=== PATIENT | male | born 1955 | race American Indian/Alaskan Native ===

== ENCOUNTER 2017-07-22 22:00 | Emergency (ER) | payer MEDICARE, MEDICAID ==
[2017-07-22] MEDS ORDERED: KEPPRA 1,000 MG/NS 0.75% 100ML 1,000 MG/100 ML BAG IV ONE (22:17)
--- NOTE | 2017-07-22 22:22 | Emergency Department Report ---
HPI - General Time Seen by Provider: 07/22/17 22:10 - HPI HPI: Room 3 The patient is 61-year-old male presenting with a chief complaint of seizure. The patient reportedly had a seizure at his assisted living facility while in the [place] watching television. EMS states the sanjay on the patient alert and oriented. Patient was being transported to the ED when he had another generalized tonic-clonic seizure witnessed by EMS last approximately 1 minute. Patient was given Versed 5 mg by EMS. Patient currently denies complaints. Patient states he had a headache earlier but no headache now. Patient denies shortness of breath. Patient denies any forms of pain currently Location: [facility] Duration: [See above] Quality: Generalized tonic-clonic Severity: Moderate Modifying factors: [see above] Context: [see above] Mode of transportation: [not driving] ED Past Medical Hx - Past Medical History Hx Hypertension: Yes Hx CVA: Yes (with residual left-sided weakness) Hx Diabetes: Yes Hx Seizures: Yes Hx Dementia: Yes - Surgical History Additional Surgical History: Herniorrhaphy - Family History Family history: no significant - Social History Smoking Status: Never Smoker ED Review of Systems ROS: Stated complaint: SEIZURE Other details as noted in HPI Eyes: denies: eye pain ENT: denies: throat pain Respiratory: denies: shortness of breath Cardiovascular: denies: chest pain Gastrointestinal: denies: abdominal pain Genitourinary: denies: dysuria Musculoskeletal: denies: back pain Neurological: denies: headache Physical Exam - Physical Exam Physical Exam: GENERAL: The patient is well-developed well-nourished male lying on stretcher not appearing to be in acute distress. [] HEENT: Normocephalic. Atraumatic. Extraocular motions are intact. Patient has moist mucous membranes. NECK: Supple. Trachea midline CHEST/LUNGS: Clear to auscultation. There is no respiratory distress noted. HEART/CARDIOVASCULAR: Regular. There is no tachycardia. There is no gallop rub or murmur. ABDOMEN: Abdomen is soft, nontender. Patient has normal bowel sounds. There is no abdominal distention. SKIN: There is no rash. There is no edema. There is no diaphoresis. NEURO: The patient is awake, alert, and oriented. The patient is cooperative. Cranial nerves II through XII grossly intact with exception of shoulder shrugging of the left secondary to residual left-sided weakness from previous CVA. The patient has normal speech MUSCULOSKELETAL: There is no evidence of acute injury. ED Medical Decision Making - Lab Data Result diagrams: 07/22/17 22:52 07/22/17 22:52 Laboratory Tests 07/22/17 07/22/17 22:52 22:52 WBC 6.6 RBC 2.98 L Hgb 10.3 L Hct 30.9 L MCV 104 H MCH 35 H MCHC 33 RDW 15.4 H Plt Count 128 L Lymph % (Auto) 5.8 L [place] % (Auto) 6.8 Eos % (Auto) 2.0 Baso % (Auto) 0.4 Lymph # 0.4 L [place] # 0.4 Eos # 0.1 Baso # 0.0 Seg Neutrophils % 85.0 H Seg Neutrophils # 5.6 Sodium 136 L Potassium 4.1 Chloride 98.4 Carbon Dioxide 24 Anion Gap 18 BUN 17 Creatinine 0.9 Estimated GFR > 60 BUN/Creatinine Ratio 19 Glucose 103 H Calcium 8.7 Magnesium 1.40 L - Differential Diagnosis seizure Critical care attestation.: If time is entered above; I have spent that time in minutes in the direct care of this critically ill patient, excluding procedure time. ED Disposition Clinical Impression: Seizure, Hypomagnesemia Disposition: DC-01 TO HOME OR SELFCARE Is pt being admited?: No Does the pt Need Aspirin: No Condition: Stable Instructions: Epilepsy (ED) Additional Instructions: Return to the emergency department immediately should you develop worsening symptoms, fever, inability to tolerate food or liquid or any other concerns. Referrals: AARON BURR MD [Primary Care Provider] - 3-5 Days (You should follow up with your primary physician for further evaluation of your low magnesium) Time of Disposition: 23:43
[2017-07-22 23:06] LABS: Basophils % (Auto) 0.4 % (0.0-1.8); Eosinophils # (Auto) 0.1 K/mm3 (0.0-0.4); Hematocrit 30.9 % (35.5-45.6); Hemoglobin 10.3 gm/dl (11.8-15.2); Lymphocytes # (Auto) 0.4 K/mm3 (1.2-5.4); Lymphocytes % (Auto) 5.8 % (13.4-35.0); Mean Corpuscular HGB Conc 33 % (32-34); Mean Corpuscular Hemoglobin 35 pg (28-32); Mean Corpuscular Volume 104 fl (84-94); Monocytes # (Auto) 0.4 K/mm3 (0.0-0.8); Monocytes % (Auto) 6.8 % (0.0-7.3); Platelet Count 128 K/mm3 (140-440); Red Blood Count 2.98 M/mm3 (3.65-5.03); Red Cell Distribution Width 15.4 % (13.2-15.2)
[2017-07-22 23:29] LABS: BUN/Creatinine Ratio 19; Blood Urea Nitrogen 17 mg/dL (9-20); Calcium 8.7 mg/dL (8.4-10.2); Hemolysis Index 3
[2017-07-22] MEDS ORDERED: MAGNESIUM SULFATE 2GM/50ML 2 GM/50 ML BAG IV ONE (23:33)
[2017-07-23 10:03] VITALS: BP 145/81
== END 2017-07-23 09:30 | disposition home or self-care (01) ==
LOC: ED 22:00
DX: E83.42 Hypomagnesemia (principal); R56.9 Unspecified convulsions; I10 Essential (primary) hypertension; F03.90 Unspecified dementia, unspecified severity, without behavioral disturbance, psychotic disturbance, mood disturbance, and anxiety; Z86.73 Personal history of transient ischemic attack (TIA), and cerebral infarction without residual deficits
CPT/HCPCS: 36415; 80048; 83735; 85025; 96365; 96375; 99284; J1953; J3475

== ENCOUNTER 2017-08-08 22:53 | Inpatient (IN) | payer MEDICARE ==
[2017-08-08] MEDS ORDERED: NACL 0.9% 1000 ML 1,000 ML IV ONE (23:44)
[2017-08-09 00:23] LABS: Hematocrit 28.5 % (35.5-45.6); Hemoglobin 9.3 gm/dl (11.8-15.2); Mean Corpuscular HGB Conc 33 % (32-34); Mean Corpuscular Hemoglobin 35 pg (28-32); Mean Corpuscular Volume 105 fl (84-94); Platelet Count 125 K/mm3 (140-440); Red Cell Distribution Width 15.6 % (13.2-15.2)
[2017-08-09 00:38] LABS: INR 1.05 (0.87-1.13)
[2017-08-09 00:47] LABS: Alanine Aminotransferase 16 units/L (7-56); Albumin 3.8 g/dL (3.9-5); BUN/Creatinine Ratio 25; Blood Urea Nitrogen 33 mg/dL (9-20); Calcium 9.2 mg/dL (8.4-10.2); Hemolysis Index 17; Lipase 12 units/L (13-60)
--- NOTE | 2017-08-09 01:33 | Emergency Department Report ---
ED GI Bleed HPI - General Chief complaint: GI Bleed Stated complaint: EMESIS Time Seen by Provider: 08/09/17 00:02 Source: patient, EMS Mode of arrival: Stretcher Limitations: No Limitations - History of Present Illness Initial comments: Patient with coffee ground emesis for 3 days and lives at [facility]. Reports swollen abdomen for 2 weeks but no significant abdominal pain. MD complaint: coffee ground emesis -: days(s) (3) Location: diffuse Radiation: epigastric Severity scale (0 -10): 6 Quality: sharp Consistency: intermittent Improves with: none Worsens with: eating, vomiting Associated Symptoms: abdominal pain, nausea, vomiting. denies: epistaxis, fever /chills - Related Data Allergies Allergy/AdvReac Type Severity Reaction Status Date / Time No Known Allergies Allergy Verified 08/08/17 23:36 ED Review of Systems ROS: Stated complaint: EMESIS Other details as noted in HPI Constitutional: denies: chills, fever Eyes: denies: eye pain, eye discharge, vision change ENT: denies: ear pain, throat pain Respiratory: denies: cough, shortness of breath, wheezing Cardiovascular: denies: chest pain, palpitations Endocrine: no symptoms reported Gastrointestinal: abdominal pain, nausea, vomiting. denies: diarrhea Genitourinary: denies: urgency, dysuria Musculoskeletal: denies: back pain, joint swelling, arthralgia Skin: denies: rash, lesions Neurological: denies: headache, weakness, paresthesias Psychiatric: denies: anxiety, depression Hematological/Lymphatic: denies: easy bleeding, easy bruising ED Past Medical Hx - Past Medical History Previous Medical History?: Yes Hx Hypertension: Yes Hx CVA: Yes (with residual left-sided weakness) Hx Diabetes: Yes Hx Seizures: Yes Hx Dementia: Yes - Surgical History Past Surgical History?: Yes Additional Surgical History: Herniorrhaphy - Social History Smoking Status: Never Smoker Substance Use Type: Prescribed ED Physical Exam - General Limitations: No Limitations General appearance: alert, in no apparent distress - Head Head exam: Present: atraumatic, normocephalic - Eye Eye exam: Present: normal appearance - ENT ENT exam: Present: mucous membranes moist - Neck Neck exam: Present: normal inspection - Respiratory Respiratory exam: Present: normal lung sounds bilaterally. Absent: respiratory distress - Cardiovascular Cardiovascular Exam: Present: regular rate, normal rhythm. Absent: systolic murmur, diastolic murmur, rubs, gallop - GI/Abdominal GI/Abdominal exam: Present: soft, distended, tenderness (Mild TTP with no peritonitis.), normal bowel sounds - Rectal Rectal exam: Present: deferred - Extremities Exam Extremities exam: Present: normal inspection - Back Exam Back exam: Present: normal inspection - Neurological Exam Neurological exam: Present: alert, oriented X3 - Psychiatric Psychiatric exam: Present: normal affect, normal mood - Skin Skin exam: Present: warm, dry, intact, normal color. Absent: rash ED Course Vital Signs 08/08/17 08/08/17 08/08/17 23:29 23:30 23:36 Temperature 98.7 F Pulse Rate 93 H 82 90 Respiratory 16 22 Rate Blood Pressure 132/72 132/70 O2 Sat by Pulse 96 99 Oximetry 08/08/17 08/09/17 08/09/17 23:45 00:00 00:15 Temperature Pulse Rate 88 86 85 Respiratory 15 17 14 Rate Blood Pressure 132/72 117/72 117/72 O2 Sat by Pulse 99 100 99 Oximetry 08/09/17 08/09/17 08/09/17 00:30 00:45 01:00 Temperature Pulse Rate 81 88 91 H Respiratory 18 13 16 Rate Blood Pressure 123/72 123/72 124/81 O2 Sat by Pulse 100 99 100 Oximetry 08/09/17 08/09/17 08/09/17 01:15 01:31 01:45 Temperature Pulse Rate 89 84 80 Respiratory 15 17 14 Rate Blood Pressure 124/81 112/82 116/76 O2 Sat by Pulse 100 100 99 Oximetry ED Medical Decision Making - Lab Data Result diagrams: 08/09/17 00:00 08/09/17 00:00 Hgb decreased from previous 10.3 to 9.3. Elevated BUN. Hemeoccult positive emesis and stool. - EKG Data -: EKG Interpreted by Ok EKG shows normal: QRS complexes (normal), ST-T waves (non-specific) Rate: normal (afib) - EKG Data Interpretation: no acute changes - Radiology Data Radiology results: pending - Medical Decision Making Patient has never had endoscopy upper or lower. He was positive for hemaoccult emesis and stool. Patient will be admitted for GI bleed. D/W Dr. Gracia Talamantes and will be admitted to hospitalist. D/W Dr. Teran at 2:43. Critical care attestation.: If time is entered above; I have spent that time in minutes in the direct care of this critically ill patient, excluding procedure time. ED Disposition Clinical Impression: GI bleed Qualifiers: GI bleed type/associated pathology: gastrointestinal hemorrhage with hematemesis Qualified Code(s): K92.0 - Hematemesis Disposition: OP ADMIT IP TO THIS HOSP Is pt being admited?: Yes Does the pt Need Aspirin: No Condition: Stable Referrals: OTONIEL TALAMANTES MD [Staff Physician] - 3-5 Days Time of Disposition: 02:42
[2017-08-09] MEDS ORDERED: PEPCID IV ONE (02:23)
[2017-08-09] MEDS ORDERED: ZOFRAN IV ONE (02:47)
--- NOTE | 2017-08-09 03:22 | Cat Scan Report ---
FINAL REPORT EXAM: CT CHEST W CON HISTORY: GI bleed TECHNIQUE: Routine axial imaging was obtained of the thorax following the intravenous injection of 100 cc of Omnipaque 300. Sagittal and coronal reconstructions were reviewed. There are no previous studies available for comparison. FINDINGS: There is chronic volume loss in the right hemithorax with pleural parenchymal scarring projecting the right apex. There is benign and pleural calcifications also in the right hemithorax. Additional scarring seen in the left lung. Pleural fluid is not seen. The lungs are not overtly congested. The heart size is normal. There is no evidence of pulmonary embolus. The thoracic aorta is normal in caliber. There is a large hiatal hernia with considerable fluid throughout the esophagus extending into the thoracic inlet. The skeletal structures reveal multilevel disc degeneration in the thoracic spine. IMPRESSION: Chronic volume loss the right hemithorax with areas of pleural parenchymal scarring and calcification in the right upper lobe and right lung base. No evidence of pneumonia or congestion. Large hiatal hernia with extensive fluid throughout the esophagus. Whether this on the basis of reflux is uncertain.
--- NOTE | 2017-08-09 03:32 | Cat Scan Report ---
FINAL REPORT EXAM: CT ABDOMEN PELVIS W CON HISTORY: GI bleed TECHNIQUE: Routine axial imaging was obtained of the abdomen pelvis following the intravenous injection of 100 cc of Omnipaque 300. Sagittal and coronal reconstructions were reviewed. FINDINGS: There is pleural parenchymal scarring in the right lung base. There is a large hiatal hernia with fluid in the distal esophagus. There is diffuse gas distention of the colon with a large amount retained feces in the ascending colon. There are multiple nondistended fluid-filled loops of small bowel. Free air is not seen. The liver is somewhat small having a lobulated contour suggesting underlying cirrhosis. There are no focal hepatic lesions. The gallbladder is normal in size and contains at least 1 stone. The pancreas and spleen appear normal. The adrenal glands appear normal. The kidneys enhance normally. There are multiple benign cortical cysts in both kidneys measuring 10.4 millimeters in diameter. There calcification of the abdominal aorta. Free fluid is not seen. There is no evidence of adenopathy. In the pelvis the prostate gland is normal size and contains calcifications. The bladder appears normal. The skeletal structures reveal arthritic changes in left hip and multilevel disc degeneration in the lumbar spine. IMPRESSION: Diffuse gas distention of the colon with considerable teen feces in the ascending colon. 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 Large amount retained feces in the ascending colon. Mild distention of small-bowel loops which may be on the basis of the retained feces in the ascending colon. Multiple benign cortical cysts in both kidneys. Changes of the liver compatible with cirrhosis. Gallstones. Large hiatal hernia with considerable fluid in the distal esophagus. Pleural parenchymal scarring in the right lung base.
[2017-08-09 04:56] LABS: Band Neutrophils # (Manual) 0.2 K/mm3; Basophils % (Manual) 0 % (0.0-1.8); Total Cells Counted 100
[2017-08-09 04:57] LABS: Anisocytosis 1+; Hypochromasia 1+; Platelet Estimate Consistent w Auto
[2017-08-09] MEDS ORDERED: TYLENOL PO PRN (04:57)
[2017-08-09] MEDS ORDERED: MILK OF MAGNESIA PO PRN (04:57)
[2017-08-09] MEDS ORDERED: DULCOLAX PR PRN (04:57)
--- NOTE | 2017-08-09 06:14 | History and Physical Report ---
History of Present Illness Date of examination: 08/09/17 Date of admission: 08/09/17 04:18 History of present illness: 61-year-old man with a history of hypertension, diabetes, dementia, seizure, CVA , sent from the long-term for cough, emesis for 3 days. He also noted that his abdomen is distended. Patient is a very poor historian, very difficult to elicit history from him, review of systems difficult to obtain PAST MEDICAL HISTORY:hypertension, diabetes, dementia, seizure, CVA, PAST SURGICAL HISTORY: Hemorrhoidectomy FAMILY HISTORY: Hypertension SOCIAL HISTORY: Denies alcohol, tobacco, drug Medications and Allergies Allergies Allergy/AdvReac Type Severity Reaction Status Date / Time No Known Allergies Allergy Verified 08/08/17 23:36 Home Medications Medication Instructions Recorded Confirmed Last Taken Type Atorvastatin Calcium [Lipitor] 40 mg PO DAILY 08/09/17 08/09/17 08/08/17 History Bicalutamide [Casodex] 50 mg PO DAILY 08/09/17 08/09/17 08/08/17 History Folic Acid [Folvite] 1 mg PO QDAY 08/09/17 08/09/17 08/08/17 History Lisinopril [Zestril] 40 mg PO DAILY 08/09/17 08/09/17 08/08/17 History Metformin HCl 500 mg PO BID 08/09/17 08/09/17 08/08/17 History levETIRAcetam [Keppra TAB] 500 mg PO BID 08/09/17 08/09/17 08/08/17 History Active Meds: Active Medications Acetaminophen (Tylenol) 650 mg PO Q4H PRN PRN Reason: Pain MILD(1-3)/Fever >100.5/MEJIA Bisacodyl (Dulcolax) 10 mg SD QDAY PRN PRN Reason: Constipation unrelieved by MOM Sodium Chloride (Nacl 0.9% 1000 Ml) 1,000 mls @ 100 mls/hr IV DIRECT ALISSA Magnesium Hydroxide (Milk Of Magnesia) 30 ml PO Q4H PRN PRN Reason: Constipation Ondansetron HCl (Zofran) 4 mg IV Q8H PRN PRN Reason: N/V unrelieved by Reglan Exam - Physical Exam Narrative exam: Gen. appearance: Patient lying in bed in no acute distress HEENT: Normocephalic/atraumatic, pupils equal round reactive to light, extra occular movement intact, no scleral icterus, no JVD or thyromegaly or nodule, neck is supple, mucous membrane moist, no erythema or exudate Heart: S1-S2, regular rate and rhythm Lungs: Clear to auscultation bilateral breathing comfortable Abdomen: Positive bowel sounds, nontender, distended, no organomegaly Extremities: No edema, cyanosis, clubbing Neuro:: Oriented 3 , cranial nerves II-12 intact, speech, motor intact Skin: No rash, nodules, warm dry - Constitutional Vitals: Temp Pulse Resp BP Pulse Ox 98.7 F 86 21 137/75 100 08/08/17 23:36 08/09/17 02:15 08/09/17 02:15 08/09/17 04:31 08/09/17 04:31 Results - Labs CBC & Chem 7: 08/09/17 00:00 08/09/17 00:00 Labs: Abnormal lab results 08/09/17 08/09/17 Range/Units 00:00 00:00 RBC 2.70 L (3.65-5.03) M/mm3 Hgb 9.3 L (11.8-15.2) gm/dl Hct 28.5 L (35.5-45.6) % MCV 105 H (84-94) fl MCH 35 H (28-32) pg RDW 15.6 H (13.2-15.2) % Plt Count 125 L (140-440) K/mm3 Seg Neuts % (Manual) 87.0 H (40.0-70.0) % Lymphocytes % (Manual) 6.0 L (13.4-35.0) % Lymphocytes # (Manual) 0.4 L (1.2-5.4) K/mm3 Sodium 127 L (137-145) mmol/L Chloride 93.4 L (98-107) mmol/L Carbon Dioxide 17 L (22-30) mmol/L BUN 33 H (9-20) mg/dL Glucose 124 H (75-100) mg/dL Albumin 3.8 L (3.9-5) g/dL Lipase 12 L (13-60) units/L - Imaging and Cardiology CT scan - abdomen: report reviewed CT scan - chest: report reviewed Assessment and Plan Assessment Upper GI bleed Olgives syndrome Hypertension Diabetes Seizure Dementia History of CVA Thrombocytopenia Plan Admit to medicine Start IV fluids, NG tube, IV Protonix Consult GI, surgery Chest fingersticks, initiate insulin sliding scale Continue appropriate outpatient medications DVT prophylaxis
[2017-08-09] MEDS: NACL 0.9% 1000 ML 1,000 ML IV SCH (06:24)
[2017-08-09 06:32] LABS: Hematocrit 26.2 % (35.5-45.6); Hemoglobin 8.9 gm/dl (11.8-15.2)
[2017-08-09 09:19] LABS: Hemoglobin 8.8 gm/dl (11.8-15.2)
[2017-08-09] MEDS ORDERED: KEPPRA 500 MG in NACL 0.9% 100 ML IV SCH (10:00)
--- NOTE | 2017-08-09 10:51 | Gastroenterology Consultation ---
Addendum entered and electronically signed by TEOFILO BIRCH RN NEONATAL 08/09/17 11: 33: Called and spoke with pt's sister Melonie Charles ([phone]). Discussed need for EGD tomorrow to include risks vs benefits. She wishes to proceed with procedure. Original Note: <TEOFILO BIRCH - Last Filed: 08/09/17 11:11> History of Present Illness - Reason for Consult Consult date: 08/09/17 GI bleed Requesting physician: ZACHERY POST - History of Present Illness Patient is a 64 y/o male [facility] resident with PMH of HTN, DM, CVA, dementia, seizure who presented to ED with c/o coffee-ground emesis x 3 days and abdominal distention. Patient resting in bed this am w/o acute distress. He c/o N/V with scant amount of coffee-ground emesis x 1 episode this am. Also admits to constipation and occasional dysphagia with solids. No hematemesis, melena, or hematochezia. No NSAID use. No hx of PUD or Fhx of GI cancers. No previous EGD/colonoscopy. Hx of ETOH abuse but no alcohol use in over 10-14 years. Denies fever, wt loss, CP, dizziness, jaundice, abd pain, odynophagia, or diarrhea. Past History Past Medical History: diabetes, hypertension, seizures, stroke, other (dementia) Past Surgical History: Other (herniorrhaphy) Social history: other ([facility] resident). denies: smoking Medications and Allergies Allergies Allergy/AdvReac Type Severity Reaction Status Date / Time influenza virus vaccine ts AdvReac Severe Seizure Verified 08/09/17 06:29 [id number] (36 mos up) [From Fluarix [id number] (PF)] pneumococcal vaccine AdvReac Seizure Verified 08/09/17 06:30 Home Medications Medication Instructions Recorded Confirmed Last Taken Type Atorvastatin Calcium [Lipitor] 40 mg PO DAILY 08/09/17 08/09/17 08/08/17 History Bicalutamide [Casodex] 50 mg PO DAILY 08/09/17 08/09/17 08/08/17 History Folic Acid [Folvite] 1 mg PO QDAY 08/09/17 08/09/17 08/08/17 History Lisinopril [Zestril] 40 mg PO DAILY 08/09/17 08/09/17 08/08/17 History Metformin HCl 500 mg PO BID 08/09/17 08/09/17 08/08/17 History levETIRAcetam [Keppra TAB] 500 mg PO BID 08/09/17 08/09/17 08/08/17 History Active Meds: Active Medications Acetaminophen (Tylenol) 650 mg PO Q4H PRN PRN Reason: Pain MILD(1-3)/Fever >100.5/MEJIA Dextrose (D50w (25gm) Syringe) 50 ml IV PRN PRN PRN Reason: Hypoglycemia Sodium Chloride (Nacl 0.9% 1000 Ml) 1,000 mls @ 100 mls/hr IV DIRECT [facility]IS[facility] Last Admin: 08/09/17 06:24 Dose: 100 mls/hr Levetiracetam 500 mg/ Sodium (Chloride) 105 mls @ 400 mls/hr IV Q12HR [facility] Ondansetron HCl (Zofran) 4 mg IV Q8H PRN PRN Reason: N/V unrelieved by Reglan Pantoprazole Sodium (Protonix) 40 mg IV QDAY ALISSA Review of Systems - Review of Systems All systems: negative Gastrointestinal: nausea, vomiting, coffee ground emesis, other (abdominal distention) Exam - Constitutional Vital Signs: Temp Pulse Resp BP Pulse Ox 97.4 F L 82 20 131/77 98 08/09/17 06:22 08/09/17 06:22 08/09/17 06:22 08/09/17 06:22 08/09/17 06:22 General appearance: no acute distress - EENT Eyes: PERRL, EOM intact ENT: hearing intact - Respiratory Respiratory: bilateral: CTA - Cardiovascular Rhythm: regular Heart Sounds: Present: S1 & S2 Extremities: No edema - Gastrointestinal General gastrointestinal: Present: soft, non-tender, non-distended, normal bowel sounds Rectal Exam: stool brown - Integumentary Integumentary: Present: warm, dry - Labs CBC & Chem 7: 08/09/17 08:54 08/09/17 00:00 Lab Results: Laboratory Results - last 24 hr 08/09/17 08/09/17 08/09/17 00:00 00:00 00:00 WBC 5.9 RBC 2.70 L Hgb 9.3 L Hct 28.5 L MCV 105 H MCH 35 H MCHC 33 RDW 15.6 H Plt Count 125 L Add Manual Diff Complete Total Counted 100 Seg Neutrophils % Commercial Underwriter Seg Neuts % (Manual) 87.0 H Band Neutrophils % 3.0 Lymphocytes % (Manual) 6.0 L Reactive Lymphs % (Man) 0 Monocytes % (Manual) 2.0 Eosinophils % (Manual) 2.0 Basophils % (Manual) 0 Metamyelocytes % 0 Myelocytes % 0 Promyelocytes % 0 Blast Cells % 0 Nucleated RBC % Not Reportable Seg Neutrophils # Man 5.1 Band Neutrophils # 0.2 Lymphocytes # (Manual) 0.4 L Abs React Lymphs (Man) 0.0 Monocytes # (Manual) 0.1 Eosinophils # (Manual) 0.1 Basophils # (Manual) 0.0 Metamyelocytes # 0.0 Myelocytes # 0.0 Promyelocytes # 0.0 Blast Cells # 0.0 WBC Morphology Not Reportable Hypersegmented Neuts Not Reportable Hyposegmented Neuts Not Reportable Hypogranular Neuts Not Reportable Smudge Cells Not Reportable Toxic Granulation Not Reportable Toxic Vacuolation Not Reportable Dohle Bodies Not Reportable Pelger-Huet Anomaly Not Reportable Félix Rods Not Reportable Platelet Estimate Consistent w auto Clumped Platelets Not Reportable Plt Clumps, EDTA Not Reportable Large Platelets Not Reportable Giant Platelets Not Reportable Platelet Satelliting Not Reportable Plt Morphology Comment Not Reportable RBC Morphology Not Reportable Dimorphic RBCs Not Reportable Polychromasia Not Reportable Hypochromasia 1+ Poikilocytosis Not Reportable Anisocytosis 1+ Microcytosis Not Reportable Macrocytosis Not Reportable Spherocytes Not Reportable Pappenheimer Bodies Not Reportable Sickle Cells Not Reportable Target Cells Not Reportable Tear Drop Cells Not Reportable Ovalocytes Not Reportable Helmet Cells Not Reportable [place]-Dickinson Bodies Not Reportable [place] Rings Not Reportable [place] Cells Not Reportable Bite Cells Not Reportable Crenated Cell Not Reportable Elliptocytes Not Reportable Acanthocytes (Spur) Not Reportable Rouleaux Not Reportable Hemoglobin C Crystals Not Reportable Schistocytes Not Reportable Malaria parasites Not Reportable Dada Bodies Not Reportable Hem Pathologist Commnt No PT 14.2 INR 1.05 APTT 32.0 Sodium 127 L Potassium 4.2 Chloride 93.4 L Carbon Dioxide 17 L Anion Gap 21 BUN 33 H Creatinine 1.3 Estimated GFR > 60 BUN/Creatinine Ratio 25 Glucose 124 H POC Glucose Calcium 9.2 Total Bilirubin < 0.20 AST 19 ALT 16 Alkaline Phosphatase 81 Total Protein 7.1 Albumin 3.8 L Albumin/Globulin Ratio 1.2 Lipase 12 L Blood Type Antibody Screen 08/09/17 08/09/17 08/09/17 00:00 05:47 08:21 WBC RBC Hgb 8.9 L Hct 26.2 L MCV MCH MCHC RDW Plt Count Add Manual Diff Total Counted Seg Neutrophils % Seg Neuts % (Manual) Band Neutrophils % Lymphocytes % (Manual) Reactive Lymphs % (Man) Monocytes % (Manual) Eosinophils % (Manual) Basophils % (Manual) Metamyelocytes % Myelocytes % Promyelocytes % Blast Cells % Nucleated RBC % Seg Neutrophils # Man Band Neutrophils # Lymphocytes # (Manual) Abs React Lymphs (Man) Monocytes # (Manual) Eosinophils # (Manual) Basophils # (Manual) Metamyelocytes # Myelocytes # Promyelocytes # Blast Cells # WBC Morphology Hypersegmented Neuts Hyposegmented Neuts Hypogranular Neuts Smudge Cells Toxic Granulation Toxic Vacuolation Dohle Bodies Pelger-Huet Anomaly Félix Rods Platelet Estimate Clumped Platelets Plt Clumps, EDTA Large Platelets Giant Platelets Platelet Satelliting Plt Morphology Comment RBC Morphology Dimorphic RBCs Polychromasia Hypochromasia Poikilocytosis Anisocytosis Microcytosis Macrocytosis Spherocytes Pappenheimer Bodies Sickle Cells Target Cells Tear Drop Cells Ovalocytes Helmet Cells [place]-Dickinson Bodies [place] Rings Mariel Cells Bite Cells Crenated Cell Elliptocytes Acanthocytes (Spur) Rouleaux Hemoglobin C Crystals Schistocytes Malaria parasites Dada Bodies Hem Pathologist Commnt PT INR APTT Sodium Potassium Chloride Carbon Dioxide Anion Gap BUN Creatinine Estimated GFR BUN/Creatinine Ratio Glucose POC Glucose 102 Calcium Total Bilirubin AST ALT Alkaline Phosphatase Total Protein Albumin Albumin/Globulin Ratio Lipase Blood Type O POSITIVE Antibody Screen Negative 08/09/17 08:54 WBC RBC Hgb 8.8 L Hct 26.0 L MCV MCH MCHC RDW Plt Count Add Manual Diff Total Counted Seg Neutrophils % Seg Neuts % (Manual) Band Neutrophils % Lymphocytes % (Manual) Reactive Lymphs % (Man) Monocytes % (Manual) Eosinophils % (Manual) Basophils % (Manual) Metamyelocytes % Myelocytes % Promyelocytes % Blast Cells % Nucleated RBC % Seg Neutrophils # Man Band Neutrophils # Lymphocytes # (Manual) Abs React Lymphs (Man) Monocytes # (Manual) Eosinophils # (Manual) Basophils # (Manual) Metamyelocytes # Myelocytes # Promyelocytes # Blast Cells # WBC Morphology Hypersegmented Neuts Hyposegmented Neuts Hypogranular Neuts Smudge Cells Toxic Granulation Toxic Vacuolation Dohle Bodies Pelger-Huet Anomaly Félix Rods Platelet Estimate Clumped Platelets Plt Clumps, EDTA Large Platelets Giant Platelets Platelet Satelliting Plt Morphology Comment RBC Morphology Dimorphic RBCs Polychromasia Hypochromasia Poikilocytosis Anisocytosis Microcytosis Macrocytosis Spherocytes Pappenheimer Bodies Sickle Cells Target Cells Tear Drop Cells Ovalocytes Helmet Cells [place]-Dickinson Bodies [place] Rings [place] Cells Bite Cells Crenated Cell Elliptocytes Acanthocytes (Spur) Rouleaux Hemoglobin C Crystals Schistocytes Malaria parasites Dada Bodies Hem Pathologist Commnt PT INR APTT Sodium Potassium Chloride Carbon Dioxide Anion Gap BUN Creatinine Estimated GFR BUN/Creatinine Ratio Glucose POC Glucose Calcium Total Bilirubin AST ALT Alkaline Phosphatase Total Protein Albumin Albumin/Globulin Ratio Lipase Blood Type Antibody Screen Assessment and Plan 1.GI bleed 2.coffee-ground emesis 3.abd distention 4.constipation 5.dysphagia 6.cirrhosis?- etiology most likely from hx of ETOH abuse -abd CT showed large hiatal hernia, underlying cirrhosis, and diffuse gas distention of the colon with large amount of retained feces in ascending colon ( possible ogilvies syndrome?) -plt 125 -LFTs- WNL -INR- 1.05 -HGB 8.8-trending down -continue to monitor H/H and transfuse as needed -hold blood thinning medications -currently hemodynamically stable -N/V with scant amount of coffee ground emesis x 1 episode this am -etiology unclear- possible esophagitis vs PUD vs other -will schedule EGD in am -continue PPI -Dulcolax supp daily -continue supportive care -will follow <ALMA HOPE - Last Filed: 08/10/17 10:27> Medications and Allergies Active Meds: Active Medications Acetaminophen (Tylenol) 650 mg PO Q4H PRN PRN Reason: Pain MILD(1-3)/Fever >100.5/MEJIA Bisacodyl (Dulcolax) 10 mg [place] QDAY [facility] Last Admin: 08/09/17 13:51 Dose: 10 mg Dextrose (D50w (25gm) Syringe) 50 ml IV PRN PRN PRN Reason: Hypoglycemia Sodium Chloride (Nacl 0.9% 1000 Ml) 1,000 mls @ 100 mls/hr IV DIRECT [facility] Last Admin: 08/10/17 10:09 Dose: 100 mls/hr Levetiracetam (Keppra 500 Mg/Ns 0.82% 100 Ml) 500 mg in 100 mls @ 100 mls/hr IV Q12H [facility] Last Admin: 08/09/17 22:45 Dose: 100 mls/hr Ondansetron HCl (Zofran) 4 mg IV Q8H PRN PRN Reason: N/V unrelieved by Kunal Last Admin: 08/09/17 18:45 Dose: 4 mg Pantoprazole Sodium (Protonix) 40 mg IV QDAY [facility] Last Admin: 08/09/17 11:29 Dose: 40 mg Exam - Constitutional Vital Signs: Temp Pulse Resp BP Pulse Ox 98.4 F 83 17 129/79 98 08/10/17 10:04 08/10/17 10:04 08/10/17 10:04 08/10/17 10:04 08/10/17 10:04 - Labs CBC & Chem 7: 08/10/17 04:00 08/10/17 04:00 Lab Results: Laboratory Results - last 24 hr 08/09/17 08/09/17 08/09/17 11:53 13:57 16:24 WBC RBC Hgb 8.5 L Hct 25.9 L MCV MCH MCHC RDW Plt Count Lymph % (Auto) [place] % (Auto) Eos % (Auto) Baso % (Auto) Lymph # [place] # Eos # Baso # Seg Neutrophils % Seg Neutrophils # Sodium Potassium Chloride Carbon Dioxide Anion Gap BUN Creatinine Estimated GFR BUN/Creatinine Ratio Glucose POC Glucose 95 80 Calcium 08/09/17 08/10/17 08/10/17 21:38 04:00 04:00 WBC 5.2 RBC 2.53 L Hgb 8.9 L Hct 26.6 L MCV 105 H MCH 35 H MCHC 33 RDW 15.1 Plt Count 109 L Lymph % (Auto) 5.6 L [place] % (Auto) 7.9 H Eos % (Auto) 1.6 Baso % (Auto) 0.2 Lymph # 0.3 L [place] # 0.4 Eos # 0.1 Baso # 0.0 Seg Neutrophils % 84.7 H Seg Neutrophils # 4.4 Sodium 133 L Potassium 4.2 Chloride 99.9 Carbon Dioxide 17 L Anion Gap 20 BUN 19 Creatinine 0.9 Estimated GFR > 60 BUN/Creatinine Ratio 21 Glucose 66 L POC Glucose 92 Calcium 8.2 L Assessment and Plan Pt seen and evaluated on 08/09. Will do EGD to assess for UGI source of bleed.
[2017-08-09] MEDS: PROTONIX IV SCH (11:29)
[2017-08-09] MEDS: DULCOLAX PR SCH (13:51)
[2017-08-09 14:37] LABS: Hematocrit 25.9 % (35.5-45.6); Hemoglobin 8.5 gm/dl (11.8-15.2)
--- NOTE | 2017-08-09 14:47 | Event Note ---
Date: 08/09/17
[2017-08-09] MEDS: ZOFRAN IV PRN (18:45)
[2017-08-09] MEDS: KEPPRA 500 MG/NS 0.82% 100 ML 500 MG/100 ML BAG IV SCH (22:45)
[2017-08-10 07:08] LABS: BUN/Creatinine Ratio 21; Basophils % (Auto) 0.2 % (0.0-1.8); Blood Urea Nitrogen 19 mg/dL (9-20); Calcium 8.2 mg/dL (8.4-10.2); Eosinophils # (Auto) 0.1 K/mm3 (0.0-0.4); Eosinophils % (Auto) 1.6 % (0.0-4.3); Hematocrit 26.6 % (35.5-45.6); Hemoglobin 8.9 gm/dl (11.8-15.2); Hemolysis Index 4; Lymphocytes # (Auto) 0.3 K/mm3 (1.2-5.4); Lymphocytes % (Auto) 5.6 % (13.4-35.0); Mean Corpuscular HGB Conc 33 % (32-34); Mean Corpuscular Hemoglobin 35 pg (28-32); Mean Corpuscular Volume 105 fl (84-94); Monocytes # (Auto) 0.4 K/mm3 (0.0-0.8); Monocytes % (Auto) 7.9 % (0.0-7.3); Platelet Count 109 K/mm3 (140-440); Red Blood Count 2.53 M/mm3 (3.65-5.03); Red Cell Distribution Width 15.1 % (13.2-15.2)
--- NOTE | 2017-08-10 09:13 | Anesthesia Consultation ---
Anesthesia Consult and Med Hx Date of service: 08/10/17 - Airway Anesthetic Teeth Evaluation: Good ROM Head & Neck: Adequate Mental/Hyoid Distance: Adequate Mallampati Class: Class II Intubation Access Assessment: Probably Good - Pulmonary Exam CTA: Yes - Cardiac Exam Cardiac Exam: RRR - Pre-Operative Health Status ASA Pre-Surgery Classification: ASA3 Proposed Anesthetic Plan: MAC - Pulmonary Hx Smoking: Yes (Quit 18 years ago) - Cardiovascular System Hx Hypertension: Yes - Central Nervous System Hx Seizures: Yes (last one a week ago) CVA: Yes - Endocrine Hx Non-Insulin Dependent Diabetes: Yes - Hematic Hx Anemia: Yes - Other Systems Hx Cancer: Yes (Prostate) - Additional Comments Anesthesia Medical History Comments: Hx of TB
--- NOTE | 2017-08-10 09:27 | Anesthesia Day of Surgery ---
Anesthesia Day of Surgery - Day of Surgery Patient Examined: Yes Patient H&P Reviewed: Yes Patient is NPO: Yes
[2017-08-10] MEDS ORDERED: ePHEDrine SULFATE ONE (10:00)
[2017-08-10] MEDS ORDERED: XYLOCAINE MPF 2% ONE (10:00)
[2017-08-10] MEDS: NACL 0.9% 1000 ML 1,000 ML IV SCH (10:09)
[2017-08-10] MEDS ORDERED: DIPRIVAN 10 MG/ML IV ONE ×2 (10:19)
--- NOTE | 2017-08-10 10:44 | Post Operative Note ---
Pre-op diagnosis: Coffee ground emesis Post-op diagnosis: other (Hiatal hernia, esophagitis) Findings: 1. Moderate erosive esophagitis from 30 to 34 cm from incisors. 2. 6 cm hiatal hernia, with Bruce erosions at hiatus. 3. O/w normal EGD, with no active or old blood noted. Procedure: EGD Anesthesia: MAC Surgeon: ALMA HOPE Estimated blood loss: none Pathology: none Condition: stable Disposition: floor (Chronic PPI, and may need iron. Can consider outpatient colonoscopy for screening purposes.)
[2017-08-10] MEDS: D50W (25GM) Syringe IV PRN ×2 (12:56→18:53)
[2017-08-10] MEDS: KEPPRA 500 MG/NS 0.82% 100 ML 500 MG/100 ML BAG IV SCH ×2 (12:59→21:32)
[2017-08-10] MEDS: PROTONIX IV SCH (13:00)
--- NOTE | 2017-08-10 14:14 | Consultation ---
History of Present Illness Consult date: 08/10/17 Chief complaint: Nausea, dysphagia - History of present illness History of present illness: Patient is a 61-year-old male with a history of a stroke who presents from his long-term care facility with complaints of upper abdominal pain, nausea, vomiting, dysphagia. The patient states that he has been having trouble swallowing for the past several weeks. He states that every time he goes to eat something solid he feels like he is unable to swallow and proceeds to vomit. He also states that he has associated upper abdominal pain localized to the epigastrium. Per the chart the patient had coffee-ground emesis and is being evaluated for GI bleed. He underwent an EGD today that showed erosive esophagitis, hiatal hernia. The patient states he feels well today. His abdominal pain and distention has improved. He had a bowel movement and is passing minimal flatus. He denies nausea, vomiting at this time. No fevers, chills, chest pain, shortness of breath. Past History Past Medical History: diabetes, hypertension, seizures, stroke, other (dementia) Past Surgical History: Other (herniorrhaphy) Social history: other (prison resident). denies: smoking Medications and Allergies Allergies Allergy/AdvReac Type Severity Reaction Status Date / Time influenza virus vaccine ts AdvReac Severe Seizure Verified 08/09/17 06:29 [id number] (36 mos up) [From Fluarix 2310-7910 (PF)] pneumococcal vaccine AdvReac Seizure Verified 08/09/17 06:30 Home Medications Medication Instructions Recorded Confirmed Last Taken Type Atorvastatin Calcium [Lipitor] 40 mg PO DAILY 08/09/17 08/09/17 08/08/17 History Bicalutamide [Casodex] 50 mg PO DAILY 08/09/17 08/09/17 08/08/17 History Folic Acid [Folvite] 1 mg PO QDAY 08/09/17 08/09/17 08/08/17 History Lisinopril [Zestril] 40 mg PO DAILY 08/09/17 08/09/17 08/08/17 History Metformin HCl 500 mg PO BID 08/09/17 08/09/17 08/08/17 History levETIRAcetam [Keppra TAB] 500 mg PO BID 08/09/17 08/09/17 08/08/17 History Active Meds: Active Medications Acetaminophen (Tylenol) 650 mg PO Q4H PRN PRN Reason: Pain MILD(1-3)/Fever >100.5/MEJIA Bisacodyl (Dulcolax) 10 mg [place] QDAY [facility] Last Admin: 08/09/17 13:51 Dose: 10 mg Dextrose (D50w (25gm) Syringe) 50 ml IV PRN PRN PRN Reason: Hypoglycemia Last Admin: 08/10/17 12:56 Dose: 50 ml Docusate Sodium (Colace) 100 mg PO BID ALISSA Levetiracetam (Keppra 500 Mg/Ns 0.82% 100 Ml) 500 mg in 100 mls @ 100 mls/hr IV Q12H [facility] Last Admin: 08/10/17 12:59 Dose: 100 mls/hr Dextrose/Sodium Chloride (D5ns) 1,000 mls @ 75 mls/hr IV DIRECT ALISSA Ondansetron HCl (Zofran) 4 mg IV Q8H PRN PRN Reason: N/V unrelieved by Reglan Last Admin: 08/09/17 18:45 Dose: 4 mg Pantoprazole Sodium (Protonix) 40 mg IV QDAY [facility] Last Admin: 08/10/17 13:00 Dose: 40 mg Review of Systems All systems: negative (see hpi) Exam Vital Signs Pulse Resp Pulse Ox 93 H 16 96 08/08/17 23:29 08/08/17 23:29 08/08/17 23:29 Narrative exam: General: Awake, alert, oriented 3. No apparent distress CV: S1, S2 present Respiratory: Clear to auscultation bilaterally. No wheezes rales or rhonchi Abdomen: Soft, distended, nontender. Hypoactive bowel sounds in all 4 quadrants. No rebound, rigidity, guarding Extremities: No clubbing, cyanosis, edema Results - Labs 08/10/17 04:00 08/10/17 04:00 Abnormal lab results 08/09/17 08/10/17 08/10/17 Range/Units 13:57 04:00 04:00 RBC 2.53 L (3.65-5.03) M/mm3 Hgb 8.5 L 8.9 L (11.8-15.2) gm/dl Hct 25.9 L 26.6 L (35.5-45.6) % MCV 105 H (84-94) fl MCH 35 H (28-32) pg Plt Count 109 L (140-440) K/mm3 Lymph % (Auto) 5.6 L (13.4-35.0) % [place] % (Auto) 7.9 H (0.0-7.3) % Lymph # 0.3 L (1.2-5.4) K/mm3 Seg Neutrophils % 84.7 H (40.0-70.0) % Sodium 133 L (137-145) mmol/L Carbon Dioxide 17 L (22-30) mmol/L Glucose 66 L (75-100) mg/dL Calcium 8.2 L (8.4-10.2) mg/dL Diabetes panel 08/10/17 Range/Units 04:00 Sodium 133 L (137-145) mmol/L Potassium 4.2 (3.6-5.0) mmol/L Chloride 99.9 (98-107) mmol/L Carbon Dioxide 17 L (22-30) mmol/L BUN 19 (9-20) mg/dL Creatinine 0.9 (0.8-1.5) mg/dL Glucose 66 L (75-100) mg/dL Calcium 8.2 L (8.4-10.2) mg/dL Calcium panel 08/10/17 Range/Units 04:00 Calcium 8.2 L (8.4-10.2) mg/dL Pituitary panel 08/10/17 Range/Units 04:00 Sodium 133 L (137-145) mmol/L Potassium 4.2 (3.6-5.0) mmol/L Chloride 99.9 (98-107) mmol/L Carbon Dioxide 17 L (22-30) mmol/L BUN 19 (9-20) mg/dL Creatinine 0.9 (0.8-1.5) mg/dL Glucose 66 L (75-100) mg/dL Calcium 8.2 L (8.4-10.2) mg/dL Adrenal panel 08/10/17 Range/Units 04:00 Sodium 133 L (137-145) mmol/L Potassium 4.2 (3.6-5.0) mmol/L Chloride 99.9 (98-107) mmol/L Carbon Dioxide 17 L (22-30) mmol/L BUN 19 (9-20) mg/dL Creatinine 0.9 (0.8-1.5) mg/dL Glucose 66 L (75-100) mg/dL Calcium 8.2 L (8.4-10.2) mg/dL - Imaging CT scan - abdomen: report reviewed, image reviewed US - pelvic: report reviewed, image reviewed Assessment and Plan 61-year-old male with 1. GI bleed 2. Colonic distention, constipation 3. History of seizures 4. History of stroke 5. Diabetes Plan: 1. daily bowel regimen of colace BID and dulcolax suppository 2. OOB TID/PT consult. Pt states he is able to ambulate 3. PPI 4. start clear liquid diet 5. change to maintenance IVF 6. continue home meds 7. avoid narcotic meds 8. trend H/H
--- NOTE | 2017-08-10 15:02 | Discharge Summary ---
Providers - Providers Date of Admission: 08/09/17 04:18 Date of discharge: 08/10/17 Attending physician: QUIN FOY 08/09/17 02:26 Consult to Physician [CONS] Urgent Consulting Provider: OTONIEL DENT Reason For Exam: GI Bleed Place consult to:: Dr. Gracia Dent Notified:: Answering Service Phone number called:: [phone] Was contact made?: Yes If yes, spoke with:: Dr. Gracia Dent Time called:: 02:22 Comment:: Dr. Garcia (er dr) spoke with Dr. Gracia Dent 08/09/17 06:18 Consult to Physician [CONS] Routine Consulting Provider: CONRADO MITCHELL Reason For Exam: olgives sy n Place consult to:: Dr. Mitchell Notified:: Nesha MANZO Phone number called:: Was contact made?: Yes If yes, spoke with:: Gerber-office Time called:: 09:13 08/09/17 06:36 Consult to Wound/ET Nurse [CONS] Urgent Reason For Exam: bilateral buttocks decu (POA) wound eval 08/10/17 14:14 Physical Therapy Evaluation and Treat [CONS] Routine Comment: Reason For Exam: hx stroke Primary care physician: ARMIN DENT Hospitalization Condition: Stable Disposition: DC-30 STILL A PATIENT Core Measure Documentation - Palliative Care Palliative Care/ Comfort Measures: Not Applicable Exam - Constitutional Vitals: Temp Pulse Resp BP Pulse Ox 98.7 F 83 21 115/70 100 08/10/17 10:39 08/10/17 11:38 08/10/17 11:38 08/10/17 11:38 08/10/17 11:38 Plan Follow up with: OTONIEL DENT MD [Staff Physician] - 3-5 Days
[2017-08-10] MEDS: COLACE PO SCH (21:33)
[2017-08-11] MEDS: D50W (25GM) Syringe IV PRN (00:37)
[2017-08-11] MEDS: DULCOLAX PR SCH (09:30)
[2017-08-11] MEDS: PROTONIX IV SCH (09:30)
[2017-08-11] MEDS: COLACE PO SCH ×2 (09:30→21:22)
[2017-08-11] MEDS ORDERED: GOLYTELY PO ONE (11:47)
--- NOTE | 2017-08-11 11:47 | Progress Note ---
Assessment and Plan Assessment and plan: was here for GI colon is distended, still having BM -severe constipation Hospitalist Physical - Constitutional Vitals: Temp Pulse Resp BP Pulse Ox 99.0 F 79 18 100/64 98 08/11/17 08:48 08/11/17 08:48 08/11/17 08:48 08/11/17 08:48 08/11/17 08:48 Results - Labs CBC & Chem 7: 08/10/17 04:00 08/10/17 19:08 Labs: Laboratory Last Values WBC 5.2 K/mm3 (4.5-11.0) 08/10/17 04:00 RBC 2.53 M/mm3 (3.65-5.03) L 08/10/17 04:00 Hgb 8.9 gm/dl (11.8-15.2) L 08/10/17 04:00 Hct 26.6 % (35.5-45.6) L 08/10/17 04:00 MCV 105 fl (84-94) H 08/10/17 04:00 MCH 35 pg (28-32) H 08/10/17 04:00 MCHC 33 % (32-34) 08/10/17 04:00 RDW 15.1 % (13.2-15.2) 08/10/17 04:00 Plt Count 109 K/mm3 (140-440) L 08/10/17 04:00 Lymph % (Auto) 5.6 % (13.4-35.0) L 08/10/17 04:00 [place] % (Auto) 7.9 % (0.0-7.3) H 08/10/17 04:00 Eos % (Auto) 1.6 % (0.0-4.3) 08/10/17 04:00 Baso % (Auto) 0.2 % (0.0-1.8) 08/10/17 04:00 Lymph # 0.3 K/mm3 (1.2-5.4) L 08/10/17 04:00 Broome # 0.4 K/mm3 (0.0-0.8) 08/10/17 04:00 Eos # 0.1 K/mm3 (0.0-0.4) 08/10/17 04:00 Baso # 0.0 K/mm3 (0.0-0.1) 08/10/17 04:00 Add Manual Diff Complete 08/09/17 00:00 Total Counted 100 08/09/17 00:00 Seg Neutrophils % 84.7 % (40.0-70.0) H 08/10/17 04:00 Seg Neuts % (Manual) 87.0 % (40.0-70.0) H 08/09/17 00:00 Band Neutrophils % 3.0 % 08/09/17 00:00 Lymphocytes % (Manual) 6.0 % (13.4-35.0) L 08/09/17 00:00 Reactive Lymphs % (Man) 0 % 08/09/17 00:00 Monocytes % (Manual) 2.0 % (0.0-7.3) 08/09/17 00:00 Eosinophils % (Manual) 2.0 % (0.0-4.3) 08/09/17 00:00 Basophils % (Manual) 0 % (0.0-1.8) 08/09/17 00:00 Metamyelocytes % 0 % 08/09/17 00:00 Myelocytes % 0 % 08/09/17 00:00 Promyelocytes % 0 % 08/09/17 00:00 Blast Cells % 0 % 08/09/17 00:00 Nucleated RBC % Not Reportable 08/09/17 00:00 Seg Neutrophils # 4.4 K/mm3 (1.8-7.7) 08/10/17 04:00 Seg Neutrophils # Man 5.1 K/mm3 (1.8-7.7) 08/09/17 00:00 Band Neutrophils # 0.2 K/mm3 08/09/17 00:00 Lymphocytes # (Manual) 0.4 K/mm3 (1.2-5.4) L 08/09/17 00:00 Abs React Lymphs (Man) 0.0 K/mm3 08/09/17 00:00 Monocytes # (Manual) 0.1 K/mm3 (0.0-0.8) 08/09/17 00:00 Eosinophils # (Manual) 0.1 K/mm3 (0.0-0.4) 08/09/17 00:00 Basophils # (Manual) 0.0 K/mm3 (0.0-0.1) 08/09/17 00:00 Metamyelocytes # 0.0 K/mm3 08/09/17 00:00 Myelocytes # 0.0 K/mm3 08/09/17 00:00 Promyelocytes # 0.0 K/mm3 08/09/17 00:00 Blast Cells # 0.0 K/mm3 08/09/17 00:00 WBC Morphology Not Reportable 08/09/17 00:00 Hypersegmented Neuts Not Reportable 08/09/17 00:00 Hyposegmented Neuts Not Reportable 08/09/17 00:00 Hypogranular Neuts Not Reportable 08/09/17 00:00 Smudge Cells Not Reportable 08/09/17 00:00 Toxic Granulation Not Reportable 08/09/17 00:00 Toxic Vacuolation Not Reportable 08/09/17 00:00 Dohle Bodies Not Reportable 08/09/17 00:00 Pelger-Huet Anomaly Not Reportable 08/09/17 00:00 Félix Rods Not Reportable 08/09/17 00:00 Platelet Estimate Consistent w auto 08/09/17 00:00 Clumped Platelets Not Reportable 08/09/17 00:00 Plt Clumps, EDTA Not Reportable 08/09/17 00:00 Large Platelets Not Reportable 08/09/17 00:00 Giant Platelets Not Reportable 08/09/17 00:00 Platelet Satelliting Not Reportable 08/09/17 00:00 Plt Morphology Comment Not Reportable 08/09/17 00:00 RBC Morphology Not Reportable 08/09/17 00:00 Dimorphic RBCs Not Reportable 08/09/17 00:00 Polychromasia Not Reportable 08/09/17 00:00 Hypochromasia 1+ 08/09/17 00:00 Poikilocytosis Not Reportable 08/09/17 00:00 Anisocytosis 1+ 08/09/17 00:00 Microcytosis Not Reportable 08/09/17 00:00 Macrocytosis Not Reportable 08/09/17 00:00 Spherocytes Not Reportable 08/09/17 00:00 Pappenheimer Bodies Not Reportable 08/09/17 00:00 Sickle Cells Not Reportable 08/09/17 00:00 Target Cells Not Reportable 08/09/17 00:00 Tear Drop Cells Not Reportable 08/09/17 00:00 Ovalocytes Not Reportable 08/09/17 00:00 Helmet Cells Not Reportable 08/09/17 00:00 Carmona-Trilby Bodies Not Reportable 08/09/17 00:00 Purling Rings Not Reportable 08/09/17 00:00 Livermore Cells Not Reportable 08/09/17 00:00 Bite Cells Not Reportable 08/09/17 00:00 Crenated Cell Not Reportable 08/09/17 00:00 Elliptocytes Not Reportable 08/09/17 00:00 Acanthocytes (Spur) Not Reportable 08/09/17 00:00 Rouleaux Not Reportable 08/09/17 00:00 Hemoglobin C Crystals Not Reportable 08/09/17 00:00 Schistocytes Not Reportable 08/09/17 00:00 Malaria parasites Not Reportable 08/09/17 00:00 Dada Bodies Not Reportable 08/09/17 00:00 Hem Pathologist Commnt No 08/09/17 00:00 PT 14.2 Sec. (12.2-14.9) 08/09/17 00:00 INR 1.05 (0.87-1.13) 08/09/17 00:00 APTT 32.0 Sec. (24.2-36.6) 08/09/17 00:00 Sodium 133 mmol/L (137-145) L 08/10/17 04:00 Potassium 4.2 mmol/L (3.6-5.0) 08/10/17 04:00 Chloride 99.9 mmol/L (98-107) 08/10/17 04:00 Carbon Dioxide 17 mmol/L (22-30) L 08/10/17 04:00 Anion Gap 20 mmol/L 08/10/17 04:00 BUN 19 mg/dL (9-20) 08/10/17 04:00 Creatinine 0.9 mg/dL (0.8-1.5) 08/10/17 04:00 Estimated GFR > 60 ml/min 08/10/17 04:00 BUN/Creatinine Ratio 21 % 08/10/17 04:00 Glucose 211 mg/dL (75-100) H 08/10/17 19:08 POC Glucose 99 (70-105) 08/11/17 08:56 Calcium 8.2 mg/dL (8.4-10.2) L 08/10/17 04:00 Total Bilirubin < 0.20 mg/dL (0.1-1.2) 08/09/17 00:00 AST 19 units/L (5-40) 08/09/17 00:00 ALT 16 units/L (7-56) 08/09/17 00:00 Alkaline Phosphatase 81 units/L (35-129) 08/09/17 00:00 Total Protein 7.1 g/dL (6.3-8.2) 08/09/17 00:00 Albumin 3.8 g/dL (3.9-5) L 08/09/17 00:00 Albumin/Globulin Ratio 1.2 % 08/09/17 00:00 Lipase 12 units/L (13-60) L 08/09/17 00:00 Blood Type O POSITIVE 08/09/17 00:00 Antibody Screen Negative 08/09/17 00:00
--- NOTE | 2017-08-11 11:55 | Event Note ---
Date: 08/11/[address] Noel Packer this patient pw suspected GI bleed -sp EGD which was unrevealing -he has distended colon, and has much stool through Right colon and some gas and small amount of stool in left colon -she has placed Rectal tube -Will order Golytely to help with colonic decompression -if patient does not tolerate Golytely, will call GI to perform decompression -Dr Rhett Grace is the assigned Doctor for this patient, I have made him aware
[2017-08-11] MEDS: KEPPRA 500 MG/NS 0.82% 100 ML 500 MG/100 ML BAG IV SCH ×2 (12:14→21:22)
--- NOTE | 2017-08-11 12:27 | Progress Note ---
Assessment and Plan 61 yo M with 1. distended colon - ?oglevies syndrome 2. UGIB s/p EGD 3. seizure d/o 4. hx stroke Plan: 1. rectal tube inserted to attempt to decompressing colon. CT A/P reviewed with radiologist - stool vs mucosal thickening of ascending colon, distension of entire colon without evidence of stricture or mass to suggest mechanical large bowel obstruction. 2. NPO 3. IVF 4. golytely ordered. 5. recommend GI reeval 6. check BMP and replace lytes as needed 7. serial abd exams D/W 1' team Subjective Date of service: 08/11/17 Narrative: Pt seen and examined. c/o nausea and spitting up clear fluid from time to time. He has been tolerating clear liquids. C/O abdominal distension causing discomfort. He has small amount of flatus this am and small BM. No f/c Objective Vital Signs - 12hr 08/11/17 08/11/17 08/11/17 00:35 04:12 05:00 Temperature 98.2 F 97.8 F Pulse Rate 83 79 81 Respiratory 18 18 Rate Blood Pressure 111/72 97/66 O2 Sat by Pulse 100 99 Oximetry 08/11/17 08:48 Temperature 99.0 F Pulse Rate 79 Respiratory 18 Rate Blood Pressure 100/64 O2 Sat by Pulse 98 Oximetry - General physical appearance Narrative Exam: Gen: AAOx3. NAD CV: S1, S2+ Resp: No audible wheezes Abd, soft, distended, tympanitic, NT. no r/r/g Rectal: soft brown stool in rectal vault, normal rectal tone, no masses, no gross blood. 24 F lópez catheter with additional holes cut at the end inserted approx 5 cm into rectum. Connected to vented lópez bag. Ext: no c/c/e - Labs 08/10/17 04:00 08/10/17 19:08 Diabetes panel 08/10/17 08/10/17 Range/Units 13:42 19:08 Glucose 143 H 211 H (75-100) mg/dL Pituitary panel 08/10/17 08/10/17 Range/Units 13:42 19:08 Glucose 143 H 211 H (75-100) mg/dL Adrenal panel 08/10/17 08/10/17 Range/Units 13:42 19:08 Glucose 143 H 211 H (75-100) mg/dL - Imaging CT scan - abdomen: report reviewed, image reviewed CT scan - pelvis: report reviewed, image reviewed
[2017-08-11 14:03] LABS: BUN/Creatinine Ratio 19; Blood Urea Nitrogen 17 mg/dL (9-20); Calcium 8.4 mg/dL (8.4-10.2); Hemolysis Index 32
--- NOTE | 2017-08-11 15:14 | Progress Note ---
Assessment and Plan Abdominal distention: Status post EGD, results reviewed Colonic distention, rectal tube Surgery on board Continue management per GI and general surgery Type 2 diabetes: Continue insulin sliding scale Hypertension: Fair Seizure disorder: Continue Keppra Old stroke Subjective Date of service: 08/11/17 Interval history: Patient is awake and alert, poor historian Denies any pain Not in any distress Abdomen severely distended Patient denies any abdominal pain He does complain of nausea but denies any vomiting all interdisciplinaryreviewed Objective - Constitutional Vitals: Vital Signs - 12hr 08/11/17 08/11/17 08/11/17 04:12 05:00 08:48 Temperature 97.8 F 99.0 F Pulse Rate 79 81 79 Respiratory 18 18 Rate Blood Pressure 97/66 100/64 O2 Sat by Pulse 99 98 Oximetry 08/11/17 12:17 Temperature Pulse Rate 78 Respiratory Rate Blood Pressure 111/70 O2 Sat by Pulse 98 Oximetry General appearance: Present: no acute distress - EENT Eyes: PERRL, EOM intact ENT: hearing intact, clear oral mucosa - Neck Neck: supple, normal ROM - Respiratory Respiratory effort: normal Respiratory: bilateral: CTA - Cardiovascular Rhythm: regular Heart Sounds: Present: S1 & S2 Extremities: No edema - Gastrointestinal General gastrointestinal: Present: non-tender, distended (tense and tympanitic to percussion) - Labs CBC & Chem 7: 08/10/17 04:00 08/11/17 12:41 Labs: Abnormal lab results 08/10/17 08/10/17 08/10/17 Range/Units 07:34 12:50 18:39 Sodium (137-145) mmol/L Carbon Dioxide (22-30) mmol/L Glucose (75-100) mg/dL POC Glucose 63 L 41 L 55 L (70-105) Magnesium (1.7-2.3) mg/dL 08/10/17 08/11/17 08/11/17 Range/Units 19:08 00:06 01:18 Sodium (137-145) mmol/L Carbon Dioxide (22-30) mmol/L Glucose 211 H (75-100) mg/dL POC Glucose 64 L 207 H (70-105) Magnesium (1.7-2.3) mg/dL 08/11/17 Range/Units 12:41 Sodium 133 L (137-145) mmol/L Carbon Dioxide 17 L (22-30) mmol/L Glucose (75-100) mg/dL POC Glucose (70-105) Magnesium 1.40 L (1.7-2.3) mg/dL
[2017-08-11] MEDS ORDERED: MAGNESIUM SULFATE 1 GM in NACL 0.9% 50 ML IV ONE (16:00)
[2017-08-11] MEDS: ZOFRAN IV PRN (18:28)
[2017-08-11] MEDS: D5NS 1,000 ML IV SCH (18:28)
[2017-08-12] MEDS: ZOFRAN IV PRN (04:14)
[2017-08-12 08:58] LABS: BUN/Creatinine Ratio 17; Blood Urea Nitrogen 15 mg/dL (9-20); Calcium 8.7 mg/dL (8.4-10.2); Hemolysis Index 3
--- NOTE | 2017-08-12 09:59 | Progress Note ---
Assessment and Plan 61 yo M with 1. distended colon - ?oglevies syndrome. ?colitis. No evidence of mechanical obstruction on CT A/P 2. UGIB s/p EGD 3. seizure d/o 4. hx stroke Plan: 1. continue rectal tube 2. NPO 3. IVF 4. recommend repeat GI reeval for colon distension and possible need for decompression 5. check BMP and replace lytes as needed 6. serial abd exams 7. OOB to chair, PT consult 8. continue conservative management, will follow Subjective Date of service: 08/12/17 Narrative: Patient seen and examined. He continues to complain of nausea. He also complains of abdominal distention. The patient drank GoLYTELY yesterday and states he felt some relief and his abdomen became less distended for a short period of time. He is having bowel movements around his rectal tube. No fever/ chills. He tolerated all of the GoLYTELY without any emesis. Objective Vital Signs - 12hr 08/11/17 08/12/17 08/12/17 23:30 05:00 05:10 Temperature 98.2 F 98.0 F Pulse Rate 72 74 68 Respiratory 18 18 Rate Blood Pressure 134/81 125/75 O2 Sat by Pulse 98 99 Oximetry - General physical appearance Narrative Exam: General: Awake, alert, oriented 3. No apparent distress CV: S1, S2 present Respiratory: No audible wheezes Abdomen: Soft, nontender, very distended, tympanitic. Hypoactive bowel sounds. No rebound, rigidity, guarding Rectal: The rectal tube is in place. There is soft stool around the rectal tube in the diaper. There is liquid brown stool in the bag and tubing connected to the rectal tube. - Labs 08/10/17 04:00 08/12/17 08:24 Diabetes panel 08/11/17 08/12/17 Range/Units 12:41 08:24 Sodium 133 L 136 L (137-145) mmol/L Potassium 3.9 4.4 (3.6-5.0) mmol/L Chloride 100.0 98.0 (98-107) mmol/L Carbon Dioxide 17 L 22 (22-30) mmol/L BUN 17 15 (9-20) mg/dL Creatinine 0.9 0.9 (0.8-1.5) mg/dL Glucose 86 100 (75-100) mg/dL Calcium 8.4 8.7 (8.4-10.2) mg/dL Calcium panel 08/11/17 08/12/17 Range/Units 12:41 08:24 Calcium 8.4 8.7 (8.4-10.2) mg/dL Phosphorus 2.80 2.80 (2.5-4.5) mg/dL Pituitary panel 08/11/17 08/12/17 Range/Units 12:41 08:24 Sodium 133 L 136 L (137-145) mmol/L Potassium 3.9 4.4 (3.6-5.0) mmol/L Chloride 100.0 98.0 (98-107) mmol/L Carbon Dioxide 17 L 22 (22-30) mmol/L BUN 17 15 (9-20) mg/dL Creatinine 0.9 0.9 (0.8-1.5) mg/dL Glucose 86 100 (75-100) mg/dL Calcium 8.4 8.7 (8.4-10.2) mg/dL Adrenal panel 08/11/17 08/12/17 Range/Units 12:41 08:24 Sodium 133 L 136 L (137-145) mmol/L Potassium 3.9 4.4 (3.6-5.0) mmol/L Chloride 100.0 98.0 (98-107) mmol/L Carbon Dioxide 17 L 22 (22-30) mmol/L BUN 17 15 (9-20) mg/dL Creatinine 0.9 0.9 (0.8-1.5) mg/dL Glucose 86 100 (75-100) mg/dL Calcium 8.4 8.7 (8.4-10.2) mg/dL
[2017-08-12] MEDS ORDERED: MAGNESIUM SULFATE 2GM/50ML 2 GM/50 ML BAG IV ONE (10:00)
--- NOTE | 2017-08-12 10:15 | Gastroenterology Progress Note ---
Assessment and Plan - Patient Problems (1) Colon distention Current Visit: Yes Status: Acute Plan to address problem: Probable Ogilvies. Rule out and treat any electrolyte abnormalities. Will plan gastrograffin enema to exclude mass/obstructive lesions and perhaps alleviate any constipation. Consider neostigmine trial if no obstruction and possible colonic decompression by sigmoidoscopy. (2) Dementia Current Visit: Yes Status: Acute (3) GI bleed Current Visit: Yes Status: Acute Qualifiers: GI bleed type/associated pathology: gastrointestinal hemorrhage with hematemesis Qualified Code(s): K92.0 - Hematemesis Subjective Date of service: 08/12/17 Principal diagnosis: Reconsulted for persistent abdominal distention Interval history: The patient report mild abdominal discomfort. He appears confused and can give little cogent history overall. Objective - Constitutional Vitals: Temp Pulse Resp BP Pulse Ox 98.0 F 68 18 125/75 99 08/12/17 05:10 08/12/17 05:10 08/12/17 05:10 08/12/17 05:10 08/12/17 05:10 General appearance: no acute distress, other (Looks comfortable.) - EENT ENT: hearing intact, clear oral mucosa, dentition normal - Cardiovascular Rhythm: regular - Gastrointestinal General gastrointestinal: Present: soft, non-tender, distended (Distended and tympanic), normal bowel sounds. Absent: hepatomegaly, splenomegaly, mass Rectal Exam: deferred - Genitourinary Male Genitourinary: deferred - Neurologic Neurological: oriented to person - Labs CBC & Chem 7: 08/10/17 04:00 08/12/17 08:24 Labs: Laboratory Results - last 24 hr 08/11/17 08/11/17 08/11/17 12:24 12:41 17:26 Sodium 133 L Potassium 3.9 Chloride 100.0 Carbon Dioxide 17 L Anion Gap 20 BUN 17 Creatinine 0.9 Estimated GFR > 60 BUN/Creatinine Ratio 19 Glucose 86 POC Glucose 92 115 H Calcium 8.4 Phosphorus 2.80 Magnesium 1.40 L 08/11/17 08/12/17 20:59 08:24 Sodium 136 L Potassium 4.4 Chloride 98.0 Carbon Dioxide 22 Anion Gap 20 BUN 15 Creatinine 0.9 Estimated GFR > 60 BUN/Creatinine Ratio 17 Glucose 100 POC Glucose 100 Calcium 8.7 Phosphorus 2.80 Magnesium 1.60 L - Imaging CT scan: image reviewed (The CT image was personally reviewed. There is snyder colonic distention extending to the anus with no apparent mass lesion)
[2017-08-12] MEDS: DULCOLAX PR SCH ×2 (10:55→11:02)
[2017-08-12] MEDS: KEPPRA 500 MG/NS 0.82% 100 ML 500 MG/100 ML BAG IV SCH ×2 (11:12→21:47)
[2017-08-12] MEDS: PROTONIX IV SCH (11:17)
[2017-08-12] MEDS: COLACE PO SCH ×2 (11:24→21:47)
[2017-08-12 11:48] LABS: BUN/Creatinine Ratio 19; Blood Urea Nitrogen 15 mg/dL (9-20); Calcium 8.3 mg/dL (8.4-10.2); Hemolysis Index 3
--- NOTE | 2017-08-12 13:06 | Progress Note ---
Assessment and Plan Abdominal distention: Status post EGD, results reviewed Colonic distention, rectal tube Surgery on board Continue management per GI and general surgery Type 2 diabetes: Continue insulin sliding scale Hypertension: Fair Seizure disorder: Continue Keppra Old stroke Hypomagnesemia: IV magnesium supplement ordered Subjective Date of service: 08/12/17 Principal diagnosis: Reconsulted for persistent abdominal distention Interval history: Patient is awake and alert, poor historian Denies any pain Not in any distress Abdomen severely distended Patient denies any abdominal pain He does complain of nausea but denies any vomiting all interdisciplinary notes reviewed Objective - Constitutional Vitals: Vital Signs - 12hr 08/12/17 08/12/17 08/12/17 05:00 05:10 08:26 Temperature 98.0 F 98.0 F Pulse Rate 74 68 Respiratory 18 18 Rate Blood Pressure 125/75 123/87 O2 Sat by Pulse 99 Oximetry General appearance: Present: no acute distress - EENT Eyes: PERRL, EOM intact ENT: hearing intact, clear oral mucosa - Neck Neck: supple, normal ROM - Respiratory Respiratory effort: normal Respiratory: bilateral: CTA - Cardiovascular Rhythm: regular Heart Sounds: Present: S1 & S2 Extremities: No edema - Gastrointestinal General gastrointestinal: Present: soft, non-tender - Integumentary Integumentary: clear, warm - Musculoskeletal Musculoskeletal: strength equal bilaterally - Labs CBC & Chem 7: 08/10/17 04:00 08/12/17 10:25 Labs: Abnormal lab results 08/11/17 08/11/17 08/12/17 Range/Units 12:41 17:26 08:24 Sodium 133 L 136 L (137-145) mmol/L Carbon Dioxide 17 L (22-30) mmol/L Glucose (75-100) mg/dL POC Glucose 115 H (70-105) Calcium (8.4-10.2) mg/dL Magnesium 1.40 L 1.60 L (1.7-2.3) mg/dL 08/12/17 Range/Units 10:25 Sodium (137-145) mmol/L Carbon Dioxide 21 L (22-30) mmol/L Glucose 111 H (75-100) mg/dL POC Glucose (70-105) Calcium 8.3 L (8.4-10.2) mg/dL Magnesium 1.60 L (1.7-2.3) mg/dL
--- NOTE | 2017-08-12 13:50 | Fluoroscopy Report ---
Gastrografin enema: History: Constipation. Fecal impaction. Findings: There is areas of spasm identified in the rectosigmoid during the study however no persistence of narrowing is identified. Minimal fecal material was noted. The descending colon is visualized, could not feel transverse and ascending colon with contrast in spite of multiple attempts. No fecal matter is noted in the descending colon. No filling defects identified. Impression: Areas of spasm are noted the rectosigmoid however do not appear to persist. No significant fecal matter. Sigmoidoscopy may be advised.
[2017-08-12] MEDS ORDERED: MAGNESIUM SULFATE 1 GM in NACL 0.9% 50 ML IV ONE (14:00)
[2017-08-12] MEDS: D5NS 1,000 ML IV SCH (21:47)
[2017-08-13 07:33] LABS: Hematocrit 28.2 % (35.5-45.6); Hemoglobin 9.4 gm/dl (11.8-15.2); Mean Corpuscular HGB Conc 33 % (32-34); Mean Corpuscular Hemoglobin 35 pg (28-32); Mean Corpuscular Volume 105 fl (84-94); Platelet Count 119 K/mm3 (140-440); Red Blood Count 2.69 M/mm3 (3.65-5.03); Red Cell Distribution Width 15.7 % (13.2-15.2)
[2017-08-13 07:49] LABS: BUN/Creatinine Ratio 17; Blood Urea Nitrogen 12 mg/dL (9-20); Calcium 8.1 mg/dL (8.4-10.2); Hemolysis Index 3
[2017-08-13] MEDS ORDERED: K-DUR PO NR (08:30)
--- NOTE | 2017-08-13 10:59 | Gastroenterology Progress Note ---
Assessment and Plan 1.abd distention -probable Ogilvies -gastrograffin enema negative for mass/obstructive lesions -clinically abd is still distended and typanic -will schedule for sigmoidoscopy today -avoid narcotics -continue supportive care 2.coffee-ground emesis -HGB 9.4-stable; continue to monitor H/H and transfuse as needed -no active signs of bleeding -s/p EGD showing moderate erosive esophagitis, 6cm hiatal hernia with Bruce erosions -continue PPI Subjective Date of service: 08/13/17 Principal diagnosis: coffee-ground emesis, abd distention Interval history: Patient resting in bed. No acute distress. Denies abd pain or vomiting. Reports nausea improved with antiemetic. Objective - Constitutional Vitals: Temp Pulse Resp BP Pulse Ox 97.8 F 68 16 177/85 95 08/13/17 07:22 08/13/17 07:22 08/13/17 07:22 08/13/17 07:22 08/13/17 07:22 General appearance: no acute distress - Respiratory Respiratory: bilateral: CTA - Cardiovascular Rhythm: regular Heart Sounds: Present: S1 & S2 - Gastrointestinal General gastrointestinal: Present: non-tender, distended, normal bowel sounds, other (typanic) - Labs CBC & Chem 7: 08/13/17 06:09 08/13/17 06:09 Labs: Laboratory Results - last 24 hr 08/12/17 08/12/17 08/12/17 08:27 10:25 16:14 WBC RBC Hgb Hct MCV MCH MCHC RDW Plt Count Sodium 138 Potassium 3.8 Chloride 100.6 Carbon Dioxide 21 L Anion Gap 20 BUN 15 Creatinine 0.8 Estimated GFR > 60 BUN/Creatinine Ratio 19 Glucose 111 H POC Glucose 131 H 79 Calcium 8.3 L Magnesium 1.60 L 08/12/17 08/13/17 08/13/17 21:57 06:09 06:09 WBC 5.2 RBC 2.69 L Hgb 9.4 L Hct 28.2 L MCV 105 H MCH 35 H MCHC 33 RDW 15.7 H Plt Count 119 L Sodium 141 Potassium 3.2 L Chloride 104.4 Carbon Dioxide 21 L Anion Gap 19 BUN 12 Creatinine 0.7 L Estimated GFR > 60 BUN/Creatinine Ratio 17 Glucose 127 H POC Glucose 108 H Calcium 8.1 L Magnesium
[2017-08-13] MEDS ORDERED: WATER FOR IRRIG STERILE IR ONE ×2 (11:18→15:51)
[2017-08-13] MEDS: DULCOLAX PR SCH (12:10)
[2017-08-13] MEDS: KEPPRA 500 MG/NS 0.82% 100 ML 500 MG/100 ML BAG IV SCH ×2 (12:12→22:20)
[2017-08-13] MEDS: COLACE PO SCH ×2 (12:13→22:17)
[2017-08-13] MEDS: PROTONIX IV SCH (12:13)
--- NOTE | 2017-08-13 12:14 | Query- Abnormal Electrolytes ---
Ranjit Tony____Dameon Date:____08/13/17 Muffler Hand/CDS: Rohit Phone#:____[phone] Exercise your independent professional judgment when responding to this query. Questions asked do not imply a particular answer is desired or expected. We greatly appreciate your clarification on this issue. Clinical Documentation States: 61 year old male was admitted on 08/09/17 The H&P (Dr. Teran) states " 61-year-old man with a history of hypertension, diabetes, dementia, seizure, CVA, sent from the [place] [facility] for cough, emesis for 3 days. The progress note (Dr. Xiao 08/13/17 ) states " Abdominal distention: -probable Ogilvies -gastrograffin enema negative for mass/obstructive lesions " Clinical Findings Show: Sodium: 127 Can you please clarify whether you mean? [x ] Hyponatremia [ ] Hypokalemia [ ] Hypocalcemia [ ] Hypomagnesemia [ ] Hypernatremia [ ] Hyperkalemia [ ] Hypercalcemia [ ] Hypermagnesemia [ ] Sodium deficiency [ ] Potassium deficiency [ ] Hypochloremia [ ] Sodium excess [ ] Potassium excess [ ] Hyperchloremia [ ] Sodium overload [ ] Potassium overload [ ] Hypophosphatemia [ ] Hyperphosphatemia Acidosis; [ ] Respiratory [ ] Metabolic Alkalosis; [ ] Respiratory [ ] Metabolic [ ] Other: [ ] Comment/Explanation: Present on Admission: [x ] Yes (Y) [ ] Clinically undeterminable (W) [ ]No(N) Please also document response in your Progress Notes and/or Discharge Summary and indicate if the condition was present on admission. MTDD
[2017-08-13] MEDS: ZOFRAN IV PRN (12:21)
[2017-08-13] MEDS ORDERED: NACL 0.9% 1000 ML 1,000 ML IV SCH (13:00)
--- NOTE | 2017-08-13 13:01 | Progress Note ---
Assessment and Plan Abdominal distention: -probable Ogilvies symdrom -gastrograffin enema negative for mass/obstructive lesions -clinically abd is still distended and typanic -Schedule for sigmoidoscopy today by GI -avoid narcotics -continue supportive care Type 2 diabetes: Continue insulin sliding scale Hypertension: Fair Seizure disorder: Continue Keppra Old stroke cont asp/statin when can start po diet Hypomagnesemia: IV magnesium supplement ordered Hypokalemia - iv supplement orderded, will monitor Hospitalist Physical exam: GENERAL: well-developed AAM lying on bed appeared to be in no discomfort. HEENT: Normocephalic. Atraumatic. No conjunctival congestion or icterus. Patient has moist mucous membranes. NECK: Supple. Trachea midline. CHEST/LUNGS: Clear to auscultated bilaterally, breathing nonlabored. No wheezes crackles or rhonchi. HEART/CARDIOVASCULAR: Regular in rate and rhythm. S1 and S2 positive. ABDOMEN: Abdomen nontender, distended. Patient has no bowel sounds. SKIN: There is no rash. Warm and dry. NEURO: No focal motor deficit. Follows command. MUSCULOSKELETAL: No joint effusion or tenderness. EXTRIMITY: No edema, no cyanosis or clubbing. PSYCH: Cooperative. Subjective Date of service: 08/13/17 Principal diagnosis: coffee-ground emesis, abd distention Interval history: Patient seen and examined. Medical records and medication list reviewed. No acute event overnight noted by the RN. C/o abdominal distention Objective - Constitutional Vitals: Vital Signs - 12hr 08/13/17 08/13/17 08/13/17 04:09 04:16 07:22 Temperature 97.7 F 98.9 F 97.8 F Pulse Rate 63 140 H 68 Respiratory 0 L 20 16 Rate Blood Pressure 172/98 121/56 177/85 O2 Sat by Pulse 100 93 95 Oximetry 08/13/17 08/13/17 12:40 12:43 Temperature 98.4 F 98.4 F Pulse Rate 62 62 Respiratory 22 22 Rate Blood Pressure 167/95 167/95 O2 Sat by Pulse 100 100 Oximetry - Labs CBC & Chem 7: 08/14/17 04:00 08/14/17 04:00 Labs: Abnormal lab results 08/12/17 08/12/17 08/13/17 Range/Units 08:27 21:57 06:09 RBC (3.65-5.03) M/mm3 Hgb (11.8-15.2) gm/dl Hct (35.5-45.6) % MCV (84-94) fl MCH (28-32) pg RDW (13.2-15.2) % Plt Count (140-440) K/mm3 Potassium 3.2 L (3.6-5.0) mmol/L Carbon Dioxide 21 L (22-30) mmol/L Creatinine 0.7 L (0.8-1.5) mg/dL Glucose 127 H (75-100) mg/dL POC Glucose 131 H 108 H (70-105) Calcium 8.1 L (8.4-10.2) mg/dL 08/13/17 08/13/17 08/13/17 Range/Units 06:09 07:27 11:41 RBC 2.69 L (3.65-5.03) M/mm3 Hgb 9.4 L (11.8-15.2) gm/dl Hct 28.2 L (35.5-45.6) % MCV 105 H (84-94) fl MCH 35 H (28-32) pg RDW 15.7 H (13.2-15.2) % Plt Count 119 L (140-440) K/mm3 Potassium (3.6-5.0) mmol/L Carbon Dioxide (22-30) mmol/L Creatinine (0.8-1.5) mg/dL Glucose (75-100) mg/dL POC Glucose 116 H 153 H (70-105) Calcium (8.4-10.2) mg/dL
--- NOTE | 2017-08-13 13:20 | Anesthesia Consultation ---
Anesthesia Consult and Med Hx Date of service: 08/13/17 - Airway Anesthetic Teeth Evaluation: Poor ROM Head & Neck: Adequate Mental/Hyoid Distance: Adequate Mallampati Class: Class III Intubation Access Assessment: Possibly Difficult - Pulmonary Exam CTA: Yes - Cardiac Exam Cardiac Exam: RRR - Pre-Operative Health Status ASA Pre-Surgery Classification: ASA3 - Pulmonary Hx Smoking: Yes (Quit 18 years ago) - Cardiovascular System Hx Hypertension: Yes Hx Heart Attack/AMI: No - Central Nervous System Hx Seizures: Yes (last one a week ago) CVA: Yes (LT AND RT SIDE WEAKNESS, SLURRED SPEECH) - Endocrine Hx Non-Insulin Dependent Diabetes: Yes - Hematic Hx Anemia: Yes - Other Systems Hx Cancer: Yes (Prostate) - Additional Comments Anesthesia Medical History Comments: Hx of TB
--- NOTE | 2017-08-13 13:20 | Anesthesia Day of Surgery ---
Anesthesia Day of Surgery - Day of Surgery Patient Examined: Yes Patient H&P Reviewed: Yes Patient is NPO: Yes
--- NOTE | 2017-08-13 14:34 | Progress Note ---
Assessment and Plan 61 yo M with 1. distended colon - ?oglevies syndrome. ?colitis. No evidence of mechanical obstruction on CT A/P. s/p barium enema 2. UGIB s/p EGD 3. seizure d/o 4. hx stroke Plan: 1. for sigmoidoscopy today, will follow up results 2. dc rectal tube after sigmoidoscopy 3. replace lytes 4. OOB 5. GI/DVT ppx 6. diet per GI after procedure 7. if distension not improving, will consider use of SQ neostigmine Subjective Date of service: 08/13/17 Narrative: Pt seen and examined. Denies abd pain, n/v. Tolerating some liquids PO. S/p barium enema yesterday, showed spasm in rectosigmoid area but no masses, strictures. Objective Vital Signs - 12hr 08/13/17 08/13/17 08/13/17 04:09 04:16 07:22 Temperature 97.7 F 98.9 F 97.8 F Pulse Rate 63 140 H 68 Respiratory 0 L 20 16 Rate Blood Pressure 172/98 121/56 177/85 O2 Sat by Pulse 100 93 95 Oximetry 08/13/17 08/13/17 12:40 12:43 Temperature 98.4 F 98.4 F Pulse Rate 62 62 Respiratory 22 22 Rate Blood Pressure 167/95 167/95 O2 Sat by Pulse 100 100 Oximetry - General physical appearance Narrative Exam: Gen: Awake and alert. NAD CV: S1, S2+ resp: No audible wheezes Abd: soft, distended, NT, tympanic. No r/r/g Rectal: rectal tube in place with liquid brown stool in collection bag Ext: No c/c/e - Labs 08/13/17 06:09 08/13/17 06:09 Diabetes panel 08/13/17 Range/Units 06:09 Sodium 141 (137-145) mmol/L Potassium 3.2 L (3.6-5.0) mmol/L Chloride 104.4 (98-107) mmol/L Carbon Dioxide 21 L (22-30) mmol/L BUN 12 (9-20) mg/dL Creatinine 0.7 L (0.8-1.5) mg/dL Glucose 127 H (75-100) mg/dL Calcium 8.1 L (8.4-10.2) mg/dL Calcium panel 08/13/17 Range/Units 06:09 Calcium 8.1 L (8.4-10.2) mg/dL Pituitary panel 08/13/17 Range/Units 06:09 Sodium 141 (137-145) mmol/L Potassium 3.2 L (3.6-5.0) mmol/L Chloride 104.4 (98-107) mmol/L Carbon Dioxide 21 L (22-30) mmol/L BUN 12 (9-20) mg/dL Creatinine 0.7 L (0.8-1.5) mg/dL Glucose 127 H (75-100) mg/dL Calcium 8.1 L (8.4-10.2) mg/dL Adrenal panel 08/13/17 Range/Units 06:09 Sodium 141 (137-145) mmol/L Potassium 3.2 L (3.6-5.0) mmol/L Chloride 104.4 (98-107) mmol/L Carbon Dioxide 21 L (22-30) mmol/L BUN 12 (9-20) mg/dL Creatinine 0.7 L (0.8-1.5) mg/dL Glucose 127 H (75-100) mg/dL Calcium 8.1 L (8.4-10.2) mg/dL
[2017-08-13] MEDS ORDERED: NEO SYNEPHRINE/NS Syringe(OR USE) IV ONE (15:30)
[2017-08-13] MEDS ORDERED: XYLOCAINE MPF 2% ONE (15:30)
[2017-08-13] MEDS ORDERED: DIPRIVAN 10 MG/ML IV ONE ×2 (15:48)
[2017-08-13] MEDS ORDERED: SENOKOT S PO PRN (16:15)
--- NOTE | 2017-08-13 16:19 | Post Operative Note ---
Pre-op diagnosis: Colonic Pseudo-obstruction Post-op diagnosis: same Findings: 1. Endoscope advanced to descending colon 2. Colon full of liquid brown stool and air; decompressed as possible - No obstructing lesion seen Procedure: Flexible Sigmoidoscopy with colonic decompression Anesthesia: MAC Surgeon: SHAYLA NUÑEZ Estimated blood loss: none Pathology: none Specimen disposition: other (N/A) Condition: stable Disposition: floor (Recs: 1. Resume regular diet. 2. Patient must be turned side to side every 2-3 hours. 3. Leave out rectal tube for now, but continue PO and NE stimulant laxatives. 4. Will try neostigmine if symptoms recur.)
--- NOTE | 2017-08-13 21:59 | Operative Report ---
PROCEDURE PERFORMED: Flexible sigmoidoscopy with colonic decompression. PREOPERATIVE DIAGNOSIS: Colonic pseudoobstruction. POSTOPERATIVE DIAGNOSIS: Colonic pseudoobstruction. ENDOSCOPIST: César Chavez M.D. INSTRUMENT: inDinero video endoscope. MEDICATIONS: MAC anesthesia by [facility]. COMPLICATIONS: No apparent complications. ESTIMATED BLOOD LOSS: Minimal. SPECIMENS: None. IMPLANTS: None. FISHER POUND NET OR TRAP: None. CONDITION AT COMPLETION: Stable. TECHNIQUE: The patient was informed of the risks and benefits of the procedure. He signed the informed consent to proceed. He was placed in left lateral decubitus position. The above sedative medications were given. His vital signs remained stable throughout the procedure. The instrument was advanced from the anus to the approximate descending colon. At that point, the endoscope could not be advanced further due to obstructing liquid and solid stool. The endoscope was then slowly withdrawn with suction of stool and air as much as possible and the patient was approximately 50% improved at the end of the procedure. FINDINGS: 1. Endoscope advanced to approximately the descending colon based on landmarks and palpation. 2. The colon was full of air and semi-liquid stool throughout consistent with colonic pseudoobstruction; no solitary obstructing lesion was noted; the stool and the air were suctioned as possible with withdrawal of the scope with improvement of approximately 50% in the abdomen. RECOMMENDATIONS: 1. Resume regular diet. 2. The patient must be turned side to side every 2-3 hours. 3. Leave the rectal tube out for now, but continue oral and rectal stimulant laxatives. 4. We will try the neostigmine if his abdomen redistends. JOB# [id number] MANUEL/NTS
[2017-08-14] MEDS: PROTONIX PO SCH ×2 (05:47→12:06)
[2017-08-14 06:00] LABS: Hematocrit 26.9 % (35.5-45.6); Hemoglobin 8.8 gm/dl (11.8-15.2); Mean Corpuscular HGB Conc 33 % (32-34); Mean Corpuscular Hemoglobin 34 pg (28-32); Mean Corpuscular Volume 104 fl (84-94); Red Blood Count 2.58 M/mm3 (3.65-5.03); Red Cell Distribution Width 15.6 % (13.2-15.2)
[2017-08-14 06:01] LABS: Platelet Count 111 K/mm3 (140-440)
[2017-08-14 06:23] LABS: BUN/Creatinine Ratio 13; Blood Urea Nitrogen 9 mg/dL (9-20); Calcium 7.5 mg/dL (8.4-10.2); Hemolysis Index 17
[2017-08-14 06:51] LABS: Myelocytes # (Manual) 0.1 K/mm3; Total Cells Counted 100
[2017-08-14 06:52] LABS: Platelet Estimate Consistent w Auto
[2017-08-14] MEDS ORDERED: NACL 0.9% 1000 ML 1,000 ML ONE (07:13)
--- NOTE | 2017-08-14 09:50 | Gastroenterology Progress Note ---
Assessment and Plan 1.abd distention -probable [place]ilvies -gastrograffin enema negative for mass/obstructive lesions -s/p sigmoidoscopy with colonic decompression yesterday -clinically abd is softer today but still distended and typanic -No BMs overnight or this am per nursing -continue PO and PA stimulant laxatives -avoid narcotics -turn pt side to side every 2-3 hours -will have pt placed on tele and discuss with Dr. Chavez possibly giving neostigmine -regular diet as tolerated -continue supportive care -will follow 2.coffee-ground emesis -resolved- continue to monitor H/H and transfuse as needed -no active signs of bleeding -s/p EGD showing moderate erosive esophagitis, 6cm hiatal hernia with Bruce erosions -continue PPI Subjective Date of service: 08/14/17 Principal diagnosis: coffee-ground emesis, abd distention Interval history: Patient resting in bed. No acute distress. Reports mild generalized abd discomfort. No N/V. No BMs overnight or this am per nursing. Objective - Constitutional Vitals: Temp Pulse Resp BP Pulse Ox 97.6 F 108 H 20 138/71 96 08/14/17 08:56 08/14/17 08:56 08/14/17 08:56 08/14/17 08:56 08/14/17 08:56 General appearance: no acute distress - Respiratory Respiratory: bilateral: CTA - Cardiovascular Rhythm: other (tachycardia) Heart Sounds: Present: S1 & S2 - Gastrointestinal General gastrointestinal: Present: soft, non-tender, distended, normal bowel sounds, other (typanic) - Labs CBC & Chem 7: 08/14/17 04:00 08/14/17 04:00 Labs: Laboratory Results - last 24 hr 08/13/17 08/13/17 08/13/17 07:27 11:41 21:19 WBC RBC Hgb Hct MCV MCH MCHC RDW Plt Count Add Manual Diff Total Counted Seg Neuts % (Manual) Band Neutrophils % Lymphocytes % (Manual) Reactive Lymphs % (Man) Monocytes % (Manual) Eosinophils % (Manual) Basophils % (Manual) Metamyelocytes % Myelocytes % Promyelocytes % Blast Cells % Nucleated RBC % Seg Neutrophils # Man Band Neutrophils # Lymphocytes # (Manual) Abs React Lymphs (Man) Monocytes # (Manual) Eosinophils # (Manual) Basophils # (Manual) Metamyelocytes # Myelocytes # Promyelocytes # Blast Cells # WBC Morphology Hypersegmented Neuts Hyposegmented Neuts Hypogranular Neuts Smudge Cells Toxic Granulation Toxic Vacuolation Dohle Bodies Pelger-Huet Anomaly Félix Rods Platelet Estimate Clumped Platelets Plt Clumps, EDTA Large Platelets Giant Platelets Platelet Satelliting Plt Morphology Comment RBC Morphology Dimorphic RBCs Polychromasia Hypochromasia Poikilocytosis Anisocytosis Microcytosis Macrocytosis Spherocytes Pappenheimer Bodies Sickle Cells Target Cells Tear Drop Cells Ovalocytes Helmet Cells [place] Bodies Acampo Rings Mariel Cells Bite Cells Crenated Cell Elliptocytes Acanthocytes (Spur) Rouleaux Hemoglobin C Crystals Schistocytes Malaria parasites Dada Bodies Hem Pathologist Commnt Sodium Potassium Chloride Carbon Dioxide Anion Gap BUN Creatinine Estimated GFR BUN/Creatinine Ratio Glucose POC Glucose 116 H 153 H 149 H Calcium Folate TSH 08/14/17 08/14/17 08/14/17 00:21 00:21 04:00 WBC 5.5 RBC 2.58 L Hgb 8.8 L Hct 26.9 L MCV 104 H MCH 34 H MCHC 33 RDW 15.6 H Plt Count 111 L Add Manual Diff Complete Total Counted 100 Seg Neuts % (Manual) 78.0 H Band Neutrophils % 0 Lymphocytes % (Manual) 12.0 L Reactive Lymphs % (Man) 0 Monocytes % (Manual) 6.0 Eosinophils % (Manual) 2.0 Basophils % (Manual) 1.0 Metamyelocytes % 0 Myelocytes % 1.0 Promyelocytes % 0 Blast Cells % 0 Nucleated RBC % Not Reportable Seg Neutrophils # Man 4.3 Band Neutrophils # 0.0 Lymphocytes # (Manual) 0.7 L Abs React Lymphs (Man) 0.0 Monocytes # (Manual) 0.3 Eosinophils # (Manual) 0.1 Basophils # (Manual) 0.1 Metamyelocytes # 0.0 Myelocytes # 0.1 Promyelocytes # 0.0 Blast Cells # 0.0 WBC Morphology Not Reportable Hypersegmented Neuts Not Reportable Hyposegmented Neuts Not Reportable Hypogranular Neuts Not Reportable Smudge Cells Not Reportable Toxic Granulation Not Reportable Toxic Vacuolation Not Reportable Dohle Bodies Not Reportable Pelger-Huet Anomaly Not Reportable Félix Rods Not Reportable Platelet Estimate Consistent w auto Clumped Platelets Not Reportable Plt Clumps, EDTA Not Reportable Large Platelets Not Reportable Giant Platelets Not Reportable Platelet Satelliting Not Reportable Plt Morphology Comment Not Reportable RBC Morphology Not Reportable Dimorphic RBCs Not Reportable Polychromasia Not Reportable Hypochromasia Not Reportable Poikilocytosis Not Reportable Anisocytosis Not Reportable Microcytosis Not Reportable Macrocytosis Not Reportable Spherocytes Not Reportable Pappenheimer Bodies Not Reportable Sickle Cells Not Reportable Target Cells Not Reportable Tear Drop Cells Not Reportable Ovalocytes Not Reportable Helmet Cells Not Reportable [place] Bodies Not Reportable Acampo Rings Not Reportable Girdler Cells Not Reportable Bite Cells Not Reportable Crenated Cell Not Reportable Elliptocytes Not Reportable Acanthocytes (Spur) Not Reportable Rouleaux Not Reportable Hemoglobin C Crystals Not Reportable Schistocytes Not Reportable Malaria parasites Not Reportable Dada Bodies Not Reportable Hem Pathologist Commnt No Sodium Potassium Chloride Carbon Dioxide Anion Gap BUN Creatinine Estimated GFR BUN/Creatinine Ratio Glucose POC Glucose Calcium Folate > 20 TSH 6.860 H 08/14/17 04:00 WBC RBC Hgb Hct MCV MCH MCHC RDW Plt Count Add Manual Diff Total Counted Seg Neuts % (Manual) Band Neutrophils % Lymphocytes % (Manual) Reactive Lymphs % (Man) Monocytes % (Manual) Eosinophils % (Manual) Basophils % (Manual) Metamyelocytes % Myelocytes % Promyelocytes % Blast Cells % Nucleated RBC % Seg Neutrophils # Man Band Neutrophils # Lymphocytes # (Manual) Abs React Lymphs (Man) Monocytes # (Manual) Eosinophils # (Manual) Basophils # (Manual) Metamyelocytes # Myelocytes # Promyelocytes # Blast Cells # WBC Morphology Hypersegmented Neuts Hyposegmented Neuts Hypogranular Neuts Smudge Cells Toxic Granulation Toxic Vacuolation Dohle Bodies Pelger-Huet Anomaly Félix Rods Platelet Estimate Clumped Platelets Plt Clumps, EDTA Large Platelets Giant Platelets Platelet Satelliting Plt Morphology Comment RBC Morphology Dimorphic RBCs Polychromasia Hypochromasia Poikilocytosis Anisocytosis Microcytosis Macrocytosis Spherocytes Pappenheimer Bodies Sickle Cells Target Cells Tear Drop Cells Ovalocytes Helmet Cells [place] Bodies Acampo Rings Girdler Cells Bite Cells Crenated Cell Elliptocytes Acanthocytes (Spur) Rouleaux Hemoglobin C Crystals Schistocytes Malaria parasites Dada Bodies Hem Pathologist Commnt Sodium 136 L Potassium 3.2 L Chloride 103.0 Carbon Dioxide 22 Anion Gap 14 BUN 9 Creatinine 0.7 L Estimated GFR > 60 BUN/Creatinine Ratio 13 Glucose 121 H POC Glucose Calcium 7.5 L Folate TSH
[2017-08-14] MEDS ORDERED: K-DUR PO ONE (11:00)
--- NOTE | 2017-08-14 11:57 | Progress Note ---
Assessment and Plan 61 yo M with 1. distended colon - ?oglevies syndrome. ?colitis. No evidence of mechanical obstruction on CT A/P. s/p barium enema s/p sigmoidoscopy with decompression 08/13/17 2. UGIB s/p EGD 3. seizure d/o 4. hx stroke Plan: 1. continue conservative management 2. continue diet per GI 3. bowel regimen 4. recommend trial of neostigmine if does not improve, will defer to GI 5. continue home meds 6. no acute surgical intervention Subjective Date of service: 08/14/17 Narrative: Pt seen and examined. No acute complaints. He is tolerating a diet without any nausea or vomiting. He complains of left lower quadrant intermittent abdominal pain that feels like spasms. He has not had any bowel movements today. He feels like he is passing flatus. Objective Vital Signs - 12hr 08/13/17 08/14/17 08/14/17 23:54 01:35 05:05 Temperature 98.5 F 99.1 F Pulse Rate 75 89 70 Respiratory 20 20 Rate Blood Pressure 145/79 145/91 Blood Pressure [Left] O2 Sat by Pulse 97 93 Oximetry 08/14/17 08:56 Temperature 97.6 F Pulse Rate 108 H Respiratory 20 Rate Blood Pressure Blood Pressure 138/71 [Left] O2 Sat by Pulse 96 Oximetry - General physical appearance Narrative Exam: General: Awake, alert. No apparent distress CV: S1, S2 present Respiratory: No audible wheezes Abdomen: Soft, distended, tympanic, nontender. No rebound, rigidity, guarding Extremities: No clubbing, cyanosis, edema - Labs 08/14/17 04:00 08/14/17 04:00 Diabetes panel 08/14/17 Range/Units 04:00 Sodium 136 L (137-145) mmol/L Potassium 3.2 L (3.6-5.0) mmol/L Chloride 103.0 (98-107) mmol/L Carbon Dioxide 22 (22-30) mmol/L BUN 9 (9-20) mg/dL Creatinine 0.7 L (0.8-1.5) mg/dL Glucose 121 H (75-100) mg/dL Calcium 7.5 L (8.4-10.2) mg/dL Thyroid panel 08/14/17 Range/Units 00:21 TSH 6.860 H (0.270-4.200) mlU/mL Calcium panel 08/14/17 Range/Units 04:00 Calcium 7.5 L (8.4-10.2) mg/dL Pituitary panel 08/14/17 08/14/17 Range/Units 00:21 04:00 Sodium 136 L (137-145) mmol/L Potassium 3.2 L (3.6-5.0) mmol/L Chloride 103.0 (98-107) mmol/L Carbon Dioxide 22 (22-30) mmol/L BUN 9 (9-20) mg/dL Creatinine 0.7 L (0.8-1.5) mg/dL Glucose 121 H (75-100) mg/dL Calcium 7.5 L (8.4-10.2) mg/dL TSH 6.860 H (0.270-4.200) mlU/mL Adrenal panel 08/14/17 Range/Units 04:00 Sodium 136 L (137-145) mmol/L Potassium 3.2 L (3.6-5.0) mmol/L Chloride 103.0 (98-107) mmol/L Carbon Dioxide 22 (22-30) mmol/L BUN 9 (9-20) mg/dL Creatinine 0.7 L (0.8-1.5) mg/dL Glucose 121 H (75-100) mg/dL Calcium 7.5 L (8.4-10.2) mg/dL
[2017-08-14] MEDS: COLACE PO SCH ×2 (12:03→22:49)
[2017-08-14] MEDS: THERAGRAN Tab PO SCH (12:05)
[2017-08-14] MEDS: KCL 10MEQ/100ML 10 MEQ/100 ML BAG IV SCH ×2 (12:07→16:53)
[2017-08-14] MEDS: DULCOLAX PR SCH (12:27)
--- NOTE | 2017-08-14 16:14 | Progress Note ---
Assessment and Plan Abdominal distention: -probable Ogilvies symdrom -gastrograffin enema negative for mass/obstructive lesions -clinically abd is still distended and typanic -s/p sigmoidoscopy with decompression 08/13/17 -avoid narcotics -continue supportive care - trial of neostigmine if does not improve, will defer to GI Type 2 diabetes: Continue insulin sliding scale Hypertension: Fair Seizure disorder: Continue Keppra Old stroke cont asp/statin when can start po diet Hypomagnesemia: IV magnesium supplement ordered Hypokalemia - iv supplement orderded, will monitor Hospitalist Physical exam: GENERAL: well-developed AAM lying on bed appeared to be in no discomfort. HEENT: Normocephalic. Atraumatic. No conjunctival congestion or icterus. Patient has moist mucous membranes. NECK: Supple. Trachea midline. CHEST/LUNGS: Clear to auscultated bilaterally, breathing nonlabored. No wheezes crackles or rhonchi. HEART/CARDIOVASCULAR: Regular in rate and rhythm. S1 and S2 positive. ABDOMEN: Abdomen nontender, distended. Patient has no bowel sounds. SKIN: There is no rash. Warm and dry. NEURO: No focal motor deficit. Follows command. MUSCULOSKELETAL: No joint effusion or tenderness. EXTRIMITY: No edema, no cyanosis or clubbing. PSYCH: Cooperative. Subjective Date of service: 08/14/17 Principal diagnosis: coffee-ground emesis, abd distention Interval history: Patient seen and examined. Medical records and medication list reviewed. No acute event overnight noted by the RN. states abdominal distention much improved Objective - Constitutional Vitals: Vital Signs - 12hr 08/14/17 08/14/17 08/14/17 05:05 08:56 12:43 Temperature 99.1 F 97.6 F 98.8 F Pulse Rate 70 108 H 70 Respiratory 20 20 20 Rate Blood Pressure 145/91 Blood Pressure 138/71 130/67 [Left] O2 Sat by Pulse 93 96 95 Oximetry 08/14/17 13:00 Temperature Pulse Rate 100 H Respiratory Rate Blood Pressure Blood Pressure [Left] O2 Sat by Pulse Oximetry - Labs CBC & Chem 7: 08/14/17 04:00 08/14/17 04:00 Labs: Abnormal lab results 08/13/17 08/14/17 08/14/17 Range/Units 21:19 00:21 04:00 RBC 2.58 L (3.65-5.03) M/mm3 Hgb 8.8 L (11.8-15.2) gm/dl Hct 26.9 L (35.5-45.6) % MCV 104 H (84-94) fl MCH 34 H (28-32) pg RDW 15.6 H (13.2-15.2) % Plt Count 111 L (140-440) K/mm3 Seg Neuts % (Manual) 78.0 H (40.0-70.0) % Lymphocytes % (Manual) 12.0 L (13.4-35.0) % Lymphocytes # (Manual) 0.7 L (1.2-5.4) K/mm3 Sodium (137-145) mmol/L Potassium (3.6-5.0) mmol/L Creatinine (0.8-1.5) mg/dL Glucose (75-100) mg/dL POC Glucose 149 H (70-105) Calcium (8.4-10.2) mg/dL TSH 6.860 H (0.270-4.200) mlU/mL 08/14/17 Range/Units 04:00 RBC (3.65-5.03) M/mm3 Hgb (11.8-15.2) gm/dl Hct (35.5-45.6) % MCV (84-94) fl MCH (28-32) pg RDW (13.2-15.2) % Plt Count (140-440) K/mm3 Seg Neuts % (Manual) (40.0-70.0) % Lymphocytes % (Manual) (13.4-35.0) % Lymphocytes # (Manual) (1.2-5.4) K/mm3 Sodium 136 L (137-145) mmol/L Potassium 3.2 L (3.6-5.0) mmol/L Creatinine 0.7 L (0.8-1.5) mg/dL Glucose 121 H (75-100) mg/dL POC Glucose (70-105) Calcium 7.5 L (8.4-10.2) mg/dL TSH (0.270-4.200) mlU/mL
[2017-08-14] MEDS: ZOFRAN IV PRN (16:49)
[2017-08-14] MEDS: KEPPRA PO SCH ×2 (16:52→22:49)
[2017-08-15] MEDS: KEPPRA PO SCH ×2 (10:13→22:55)
[2017-08-15] MEDS: COLACE PO SCH ×2 (10:13→22:55)
[2017-08-15] MEDS: PROTONIX PO SCH (10:13)
[2017-08-15] MEDS: THERAGRAN Tab PO SCH (10:13)
[2017-08-15] MEDS: DULCOLAX PR SCH (10:13)
[2017-08-15 10:40] LABS: Hematocrit 28.4 % (35.5-45.6); Hemoglobin 9.3 gm/dl (11.8-15.2); Mean Corpuscular HGB Conc 33 % (32-34); Mean Corpuscular Hemoglobin 34 pg (28-32); Mean Corpuscular Volume 105 fl (84-94); Platelet Count 111 K/mm3 (140-440); Red Blood Count 2.71 M/mm3 (3.65-5.03); Red Cell Distribution Width 15.5 % (13.2-15.2)
[2017-08-15 10:51] LABS: BUN/Creatinine Ratio 11; Blood Urea Nitrogen 9 mg/dL (9-20); Calcium 8.2 mg/dL (8.4-10.2); Hemolysis Index 6
--- NOTE | 2017-08-15 11:40 | Progress Note ---
Assessment and Plan 61 yo M with 1. distended colon - ?oglevies syndrome. ?colitis. No evidence of mechanical obstruction on CT A/P. s/p barium enema s/p sigmoidoscopy with decompression 08/13/17 2. UGIB s/p EGD 3. seizure d/o 4. hx stroke Plan: 1. continue conservative management 2. continue diet per GI 3. bowel regimen 4. trial of neostigmine if does not improve, will defer to GI 5. PT/OOB Will sign off. Please call with any questions or concerns. Thank you for this consultation. Subjective Date of service: 08/15/17 Narrative: Patient seen and examined. He has no acute complaints. He states he feels better. He's been having multiple bowel movements and passing large quantities of flatus. He's been tolerating a diet without nausea or vomiting. He has no abdominal pain. Objective Vital Signs - 12hr 08/15/17 08/15/17 08/15/17 01:31 05:36 07:53 Temperature 99.3 F 99.7 F H 99.1 F Pulse Rate 71 65 66 Respiratory 18 18 19 Rate Blood Pressure 148/85 159/83 171/93 O2 Sat by Pulse 95 99 98 Oximetry - General physical appearance Narrative Exam: General: Awake, alert, oriented to person. No apparent distress CV: S1, S2 present Respiratory: No audible wheezes Abdomen: Soft, moderately distended but much improved from yesterday's exam. Nontender. Extremities: No clubbing, cyanosis, edema - Labs 08/15/17 10:00 08/15/17 10:00 Diabetes panel 08/15/17 Range/Units 10:00 Sodium 142 (137-145) mmol/L Potassium 3.5 L (3.6-5.0) mmol/L Chloride 106.0 (98-107) mmol/L Carbon Dioxide 23 (22-30) mmol/L BUN 9 (9-20) mg/dL Creatinine 0.8 (0.8-1.5) mg/dL Glucose 109 H (75-100) mg/dL Calcium 8.2 L (8.4-10.2) mg/dL Calcium panel 08/15/17 Range/Units 10:00 Calcium 8.2 L (8.4-10.2) mg/dL Pituitary panel 08/15/17 Range/Units 10:00 Sodium 142 (137-145) mmol/L Potassium 3.5 L (3.6-5.0) mmol/L Chloride 106.0 (98-107) mmol/L Carbon Dioxide 23 (22-30) mmol/L BUN 9 (9-20) mg/dL Creatinine 0.8 (0.8-1.5) mg/dL Glucose 109 H (75-100) mg/dL Calcium 8.2 L (8.4-10.2) mg/dL Adrenal panel 08/15/17 Range/Units 10:00 Sodium 142 (137-145) mmol/L Potassium 3.5 L (3.6-5.0) mmol/L Chloride 106.0 (98-107) mmol/L Carbon Dioxide 23 (22-30) mmol/L BUN 9 (9-20) mg/dL Creatinine 0.8 (0.8-1.5) mg/dL Glucose 109 H (75-100) mg/dL Calcium 8.2 L (8.4-10.2) mg/dL
[2017-08-15] MEDS ORDERED: K-DUR PO ONE (13:00)
--- NOTE | 2017-08-15 14:56 | Progress Note ---
Assessment and Plan Abdominal distention: - due to [place]'s syndrome - symptom improving with current bowel regimen -gastrograffin enema negative for mass/obstructive lesions -s/p sigmoidoscopy with decompression 08/13/17 -avoid narcotics -continue supportive care - trial of neostigmine if does not improve Type 2 diabetes: Continue insulin sliding scale Hypertension: Fair Seizure disorder: Continue Keppra Old stroke cont asp/statin when can start po diet Hypomagnesemia: IV magnesium supplement ordered Hypokalemia - iv supplement orderded, will monitor Hospitalist Physical exam: GENERAL: well-developed AAM lying on bed appeared to be in no discomfort. HEENT: Normocephalic. Atraumatic. No conjunctival congestion or icterus. Patient has moist mucous membranes. NECK: Supple. Trachea midline. CHEST/LUNGS: Clear to auscultated bilaterally, breathing nonlabored. No wheezes crackles or rhonchi. HEART/CARDIOVASCULAR: Regular in rate and rhythm. S1 and S2 positive. ABDOMEN: Abdomen nontender, distended. Patient has no bowel sounds. SKIN: There is no rash. Warm and dry. NEURO: No focal motor deficit. Follows command. MUSCULOSKELETAL: No joint effusion or tenderness. EXTRIMITY: No edema, no cyanosis or clubbing. PSYCH: Cooperative. Subjective Date of service: 08/15/17 Principal diagnosis: coffee-ground emesis, abd distention Interval history: Patient seen and examined. Medical records and medication list reviewed. No acute event overnight noted by the RN. states abdominal distention much improved s/p Multiple BM and passing large quantities of flatus tolerating diet Objective - Constitutional Vitals: Vital Signs - 12hr 08/15/17 08/15/17 05:36 07:53 Temperature 99.7 F H 99.1 F Pulse Rate 65 66 Respiratory 18 19 Rate Blood Pressure 159/83 171/93 O2 Sat by Pulse 99 98 Oximetry - Labs CBC & Chem 7: 08/15/17 10:00 08/15/17 10:00 Labs: Abnormal lab results 08/14/17 08/14/17 08/15/17 Range/Units 07:54 22:57 08:01 RBC (3.65-5.03) M/mm3 Hgb (11.8-15.2) gm/dl Hct (35.5-45.6) % MCV (84-94) fl MCH (28-32) pg RDW (13.2-15.2) % Plt Count (140-440) K/mm3 Potassium (3.6-5.0) mmol/L Glucose (75-100) mg/dL POC Glucose 132 H 122 H 125 H (70-105) Calcium (8.4-10.2) mg/dL 08/15/17 08/15/17 08/15/17 Range/Units 10:00 10:00 11:30 RBC 2.71 L (3.65-5.03) M/mm3 Hgb 9.3 L (11.8-15.2) gm/dl Hct 28.4 L (35.5-45.6) % MCV 105 H (84-94) fl MCH 34 H (28-32) pg RDW 15.5 H (13.2-15.2) % Plt Count 111 L (140-440) K/mm3 Potassium 3.5 L (3.6-5.0) mmol/L Glucose 109 H (75-100) mg/dL POC Glucose 198 H (70-105) Calcium 8.2 L (8.4-10.2) mg/dL
--- NOTE | 2017-08-15 17:58 | Gastroenterology Progress Note ---
Assessment and Plan - Patient Problems (1) Aura's syndrome Current Visit: Yes Status: Acute Plan to address problem: - Doing well on current bowel regimen; will have some chronic distention. - Continue current bowel regimen. Neostigmine if fails. - Agree with surgery subtotal colectomy/cecostomy tube are premature. Subjective Date of service: 08/15/17 Principal diagnosis: Aura's Interval history: The patient reports a BM after dulcolax today. He is eating without N/V/ abdominal pain. He has no blood in the stools. Objective - Constitutional Vitals: Temp Pulse Resp BP Pulse Ox 100.1 F H 74 19 127/74 97 08/15/17 15:33 08/15/17 15:33 08/15/17 15:33 08/15/17 15:33 08/15/17 15:33 General appearance: no acute distress - Respiratory Respiratory effort: normal Respiratory: bilateral: CTA - Cardiovascular Rhythm: regular Heart Sounds: Present: S1 & S2 - Gastrointestinal General gastrointestinal: Present: soft, non-tender, distended (Mild/non-tense/ no guarding) - Labs CBC & Chem 7: 08/15/17 10:00 08/15/17 10:00 Labs: Laboratory Results - last 24 hr 08/14/17 08/14/17 08/14/17 07:54 12:11 17:05 WBC RBC Hgb Hct MCV MCH MCHC RDW Plt Count Sodium Potassium Chloride Carbon Dioxide Anion Gap BUN Creatinine Estimated GFR BUN/Creatinine Ratio Glucose POC Glucose 132 H 99 85 Calcium 08/14/17 08/15/17 08/15/17 22:57 07:51 08:01 WBC RBC Hgb Hct MCV MCH MCHC RDW Plt Count Sodium Potassium Chloride Carbon Dioxide Anion Gap BUN Creatinine Estimated GFR BUN/Creatinine Ratio Glucose POC Glucose 122 H 84 125 H Calcium 08/15/17 08/15/17 08/15/17 10:00 10:00 11:30 WBC 4.6 RBC 2.71 L Hgb 9.3 L Hct 28.4 L MCV 105 H MCH 34 H MCHC 33 RDW 15.5 H Plt Count 111 L Sodium 142 Potassium 3.5 L Chloride 106.0 Carbon Dioxide 23 Anion Gap 17 BUN 9 Creatinine 0.8 Estimated GFR > 60 BUN/Creatinine Ratio 11 Glucose 109 H POC Glucose 198 H Calcium 8.2 L 08/15/17 15:41 WBC RBC Hgb Hct MCV MCH MCHC RDW Plt Count Sodium Potassium Chloride Carbon Dioxide Anion Gap BUN Creatinine Estimated GFR BUN/Creatinine Ratio Glucose POC Glucose 338 H Calcium
[2017-08-15] MEDS ORDERED: NS/KCL 20MEQ 20 MEQ/1,000 ML BAG IV SCH (22:00)
[2017-08-16 09:00] LABS: BUN/Creatinine Ratio 15; Blood Urea Nitrogen 12 mg/dL (9-20); Calcium 7.8 mg/dL (8.4-10.2); Hemolysis Index 19
[2017-08-16] MEDS: PROTONIX PO SCH (10:11)
[2017-08-16] MEDS: THERAGRAN Tab PO SCH (10:11)
[2017-08-16] MEDS: DULCOLAX PR SCH (10:11)
[2017-08-16] MEDS: COLACE PO SCH ×2 (10:11→21:56)
[2017-08-16] MEDS: KEPPRA PO SCH ×2 (10:11→21:56)
[2017-08-16] MEDS: KEPPRA 500 MG/NS 0.82% 100 ML 500 MG/100 ML BAG IV SCH (12:26)
--- NOTE | 2017-08-16 12:28 | Discharge Summary ---
Providers - Providers Date of Admission: 08/09/17 04:18 Date of discharge: 08/16/17 Attending physician: JAMES VANG 08/09/17 02:26 Consult to Physician [CONS] Urgent Consulting Provider: OTONIEL DENT Reason For Exam: GI Bleed Place consult to:: Dr. Gracia Dent Notified:: Answering Service Phone number called:: [phone] Was contact made?: Yes If yes, spoke with:: Dr. Gracia Dent Time called:: 02:22 Comment:: Dr. Garcia (er dr) spoke with Dr. Gracia Dent 08/09/17 06:18 Consult to Physician [CONS] Routine Consulting Provider: CONRADO MITCHELL Reason For Exam: olgives sy n Place consult to:: Dr. 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 - symptom improving with current bowel regimen -gastrograffin enema negative for mass/obstructive lesions -s/p sigmoidoscopy with decompression 08/13/17 -avoid narcotics -continue supportive care - trial of neostigmine if does not improve Type 2 diabetes: Continue insulin sliding scale Hypertension: [place] grounf emesis - s/p EGD on 08/09/17 showed esophagitis and no active bleeding or ulcer Seizure disorder: Continue Keppra Old stroke cont asp/statin Hypomagnesemia: s/p IV magnesium supplement Hypokalemia - s/p iv supplement Hospitalist Physical exam: GENERAL: well-developed AAM lying on bed appeared to be in no discomfort. HEENT: Normocephalic. Atraumatic. No conjunctival congestion or icterus. Patient has moist mucous membranes. NECK: Supple. Trachea midline. CHEST/LUNGS: Clear to auscultated bilaterally, breathing nonlabored. No wheezes crackles or rhonchi. HEART/CARDIOVASCULAR: Regular in rate and rhythm. S1 and S2 positive. ABDOMEN: Abdomen nontender, distended. Patient has no bowel sounds. SKIN: There is no rash. Warm and dry. NEURO: No focal motor deficit. Follows command. MUSCULOSKELETAL: No joint effusion or tenderness. EXTRIMITY: No edema, no cyanosis or clubbing. PSYCH: Cooperative. Disposition: DC/[place]-06 HOME UNDER HOME [facility] Time spent for discharge: 32 minutes Core Measure Documentation - Palliative Care Palliative Care/ Comfort Measures: Not Applicable - Core Measures Any of the following diagnoses?: stroke, history only - Stroke Discharge Requirements Statin for LDL = or >70 mg/dl on DC: Yes Anticoag for atrial fib/atrial flutter: Not Applicable Antithrombotic for ischemic stroke: Yes Exam - Constitutional Vitals: Temp Pulse Resp BP Pulse Ox 98.3 F 65 20 153/80 96 08/16/17 04:28 08/16/17 04:28 08/16/17 09:29 08/16/17 04:28 08/16/17 04:28 Plan Activity: advance as tolerated Weight Bearing Status: Weight Bear as Tolerated Diet: low fat, low salt, other (high fibre diet) Follow up with: OTONIEL DENT MD [Staff Physician] - 3-5 Days Prescriptions: Bisacodyl [Dulcolax suppos] 10 mg PA QDAY #30 supp.rect Docusate Sodium [Colace CAP] 100 mg PO BID #60 capsule Pantoprazole [Protonix TAB] 40 mg PO QDAY #30 tablet
[2017-08-16 19:58] VITALS: BP 142/86
== END 2017-08-16 23:00 | disposition home health service (06) | DRG 344 ==
LOC: ED 22:53 → 4A 08-09 04:18
PROVIDERS: ADMIT Internal Medicine; ATTEND Internal Medicine
PROC: 0DJ08ZZ Inspection of Upper Intestinal Tract, Via Natural or Artificial Opening Endoscopic (ICD-10-PCS; principal; 2017-08-10)
PROC: 0D9N8ZZ Drainage of Sigmoid Colon, Via Natural or Artificial Opening Endoscopic (ICD-10-PCS; 2017-08-13)
DX: K56.609 Unspecified intestinal obstruction, unspecified as to partial versus complete obstruction (principal); K22.11 Ulcer of esophagus with bleeding; E87.1 Hypo-osmolality and hyponatremia; K44.9 Diaphragmatic hernia without obstruction or gangrene; E87.6 Hypokalemia; F03.90 Unspecified dementia, unspecified severity, without behavioral disturbance, psychotic disturbance, mood disturbance, and anxiety; I10 Essential (primary) hypertension; E83.42 Hypomagnesemia; K52.9 Noninfective gastroenteritis and colitis, unspecified; Z86.73 Personal history of transient ischemic attack (TIA), and cerebral infarction without residual deficits; Z82.49 Family history of ischemic heart disease and other diseases of the circulatory system; Z79.84 Long term (current) use of oral hypoglycemic drugs; Z79.899 Other long term (current) drug therapy; Z88.7 Allergy status to serum and vaccine
CPT/HCPCS: 36415; 71260; 74177; 74283; 80048; 80053; 82747; 82947; 82962; 83690; 83735; 84100; 84439; 84443; 85007; 85014; 85018; 85025; 85027; 85610; 85730; 86850; 86900; 86901; 93005; 93010; 96374; 96375; C9113; J1953; J2370; J2405; J2704; J3475; J3480; J7030; J7042; Q9963; Q9967

== ENCOUNTER 2018-11-12 20:55 | Emergency (ER) | payer MEDICARE ==
[2018-11-12] MEDS ORDERED: KEPPRA 1,000 MG/NS 0.75% 100ML 1,000 MG/100 ML BAG IV ONE (22:10)
[2018-11-12 22:25] LABS: Basophils % (Auto) 0.4 % (0.0-1.8); Eosinophils # (Auto) 0.1 K/mm3 (0.0-0.4); Eosinophils % (Auto) 2.3 % (0.0-4.3); Hematocrit 31.2 % (35.5-45.6); Hemoglobin 10.6 gm/dl (11.8-15.2); Lymphocytes # (Auto) 0.4 K/mm3 (1.2-5.4); Lymphocytes % (Auto) 10.5 % (13.4-35.0); Mean Corpuscular HGB Conc 34 % (32-34); Mean Corpuscular Volume 108 fl (84-94); Monocytes # (Auto) 0.3 K/mm3 (0.0-0.8); Monocytes % (Auto) 7.8 % (0.0-7.3); Platelet Count 106 K/mm3 (140-440); Red Blood Count 2.89 M/mm3 (3.65-5.03); Red Cell Distribution Width 15.4 % (13.2-15.2)
[2018-11-12 22:54] LABS: BUN/Creatinine Ratio 13; Blood Urea Nitrogen 12 mg/dL (9-20); Calcium 9.2 mg/dL (8.4-10.2); Hemolysis Index 1
--- NOTE | 2018-11-12 23:03 | Emergency Department Report ---
ED Seizure HPI - General Chief Complaint: Medical Clearance Stated Complaint: SPITTING UP Time Seen by Provider: 11/12/18 22:08 Source: EMS Mode of arrival: Stretcher Limitations: No Limitations - History of Present Illness Initial Comments: 63-year-old male with a past medical history CVA, dementia, diabetes, GERD, hypertension, prostate cancer, and seizures as well as alcohol associated seizures presents to the hospital with complaints of possible seizure. Patient resides at a [facility]. EMS was called due to possible seizure. Patient thought within told them he just needed to spit. It appears the patient has not had any seizure activity today. He states he has history of alcohol abuse but has not had alcohol in 18 years. His medication list includes Keppra 500 mg twice a day and patient should have received his evening dose at 8 PM. He is also on folate and multivitamins as well as other meds provided by [facility]. He currently has no complaints. - Related Data Home Medications Medication Instructions Recorded Confirmed Last Taken Atorvastatin Calcium [Lipitor] 40 mg PO DAILY 08/09/17 08/09/17 08/08/17 Bicalutamide [Casodex] 50 mg PO DAILY 08/09/17 08/09/17 08/08/17 Folic Acid [Folvite] 1 mg PO QDAY 08/09/17 08/09/17 08/08/17 Lisinopril [Zestril] 40 mg PO DAILY 08/09/17 08/09/17 08/08/17 Metformin HCl 500 mg PO BID 08/09/17 08/09/17 08/08/17 levETIRAcetam [Keppra TAB] 500 mg PO BID 08/09/17 08/09/17 08/08/17 Previous Rx's Medication Instructions Recorded Last Taken Type Bisacodyl [Dulcolax suppos] 10 mg LA QDAY #30 supp.rect 08/16/17 Unknown Rx Docusate Sodium [Colace CAP] 100 mg PO BID #60 capsule 08/16/17 Unknown Rx Pantoprazole [Protonix TAB] 40 mg PO QDAY #30 tablet 08/16/17 Unknown Rx Nitrofurantoin Monohyd/M-Cryst 100 mg PO BID #13 capsule 11/12/18 Unknown Rx [Macrobid 100 mg Capsule] Allergies Allergy/AdvReac Type Severity Reaction Status Date / Time influenza virus vaccine ts AdvReac Severe Seizure Verified 08/09/17 06:29 [id number] (36 mos up) [From Fluarix [id number] (PF)] pneumococcal vaccine AdvReac Seizure Verified 08/09/17 06:30 ED Review of Systems ROS: Stated complaint: SPITTING UP Other details as noted in HPI Comment: All other systems reviewed and negative ED Past Medical Hx - Past Medical History Previous Medical History?: Yes Hx Hypertension: Yes Hx CVA: Yes (with residual left-sided weakness) Hx Heart Attack/AMI: No Hx Diabetes: Yes Hx GERD: Yes Hx of Cancer: Yes (prostate) Hx Seizures: Yes (last one a week ago) Hx Dementia: Yes - Surgical History Additional Surgical History: Herniorrhaphy - Social History Smoking Status: Former Smoker - Medications Home Medications: Home Medications Medication Instructions Recorded Confirmed Last Taken Type Atorvastatin Calcium [Lipitor] 40 mg PO DAILY 08/09/17 08/09/17 08/08/17 History Bicalutamide [Casodex] 50 mg PO DAILY 08/09/17 08/09/17 08/08/17 History Folic Acid [Folvite] 1 mg PO QDAY 08/09/17 08/09/17 08/08/17 History Lisinopril [Zestril] 40 mg PO DAILY 08/09/17 08/09/17 08/08/17 History Metformin HCl 500 mg PO BID 08/09/17 08/09/17 08/08/17 History levETIRAcetam [Keppra TAB] 500 mg PO BID 08/09/17 08/09/17 08/08/17 History Bisacodyl [Dulcolax suppos] 10 mg LA QDAY #30 supp.rect 08/16/17 Unknown Rx Docusate Sodium [Colace CAP] 100 mg PO BID #60 capsule 08/16/17 Unknown Rx Pantoprazole [Protonix TAB] 40 mg PO QDAY #30 tablet 08/16/17 Unknown Rx Nitrofurantoin Monohyd/M-Cryst 100 mg PO BID #13 capsule 11/12/18 Unknown Rx [Macrobid 100 mg Capsule] ED Physical Exam - General Limitations: No Limitations - Other Other exam information: General: No limitations, patient is alert in no acute distress Head exam: Atraumatic, normocephalic Eyes exam: Normal appearance, pupils equal reactive to light, extraocular movements intact ENT: Moist mucous membran Neck exam: Normal inspection, full range of motion, no meningismus nontender Respiratory exam: Clear to auscultation bilateral, no wheezes, rales, crackles Cardiovascular: Normal rate and rhythm, normal heart sounds Abdomen: Soft, nondistended, and nontender, with normal bowel sounds, no rebound, or guarding Extremity: Full range of motion normal inspection no deformity Back: Normal Inspection, full range of motion, no tenderness Neurologic: Alert, oriented x2 (not to year), cranial nerves intact, patient has equal hand big data admin and straight leg raise strength bilaterally, sensation grossly intact, [id number] flexion intact Psychiatric: normal affect, normal mood Skin: Warm, dry, intact ED Course Vital Signs 11/12/18 11/12/18 11/12/18 20:58 22:05 22:44 Temperature 98 F Pulse Rate 76 67 70 Respiratory 16 17 14 Rate Blood Pressure 169/90 120/75 158/78 [Left] O2 Sat by Pulse 99 99 98 Oximetry ED Medical Decision Making - Lab Data Result diagrams: 11/12/18 22:10 11/12/18 22:10 Lab Results 11/12/18 11/12/18 11/12/18 Range/Units 22:10 22:10 22:47 WBC 3.8 L (4.5-11.0) K/mm3 RBC 2.89 L (3.65-5.03) M/mm3 Hgb 10.6 L (11.8-15.2) gm/dl Hct 31.2 L (35.5-45.6) % MCV 108 H (84-94) fl MCH 37 H (28-32) pg MCHC 34 (32-34) % RDW 15.4 H (13.2-15.2) % Plt Count 106 L (140-440) K/mm3 Lymph % (Auto) 10.5 L (13.4-35.0) % Weld % (Auto) 7.8 H (0.0-7.3) % Eos % (Auto) 2.3 (0.0-4.3) % Baso % (Auto) 0.4 (0.0-1.8) % Lymph # 0.4 L (1.2-5.4) K/mm3 Weld # 0.3 (0.0-0.8) K/mm3 Eos # 0.1 (0.0-0.4) K/mm3 Baso # 0.0 (0.0-0.1) K/mm3 Seg Neutrophils % 79.0 H (40.0-70.0) % Seg Neutrophils # 3.0 (1.8-7.7) K/mm3 Sodium 136 L (137-145) mmol/L Potassium 3.9 (3.6-5.0) mmol/L Chloride 101.7 (98-107) mmol/L Carbon Dioxide 23 (22-30) mmol/L Anion Gap 15 mmol/L BUN 12 (9-20) mg/dL Creatinine 0.9 (0.8-1.5) mg/dL Estimated GFR > 60 ml/min BUN/Creatinine Ratio 13 % Glucose 90 (75-100) mg/dL POC Glucose 87 (70-105) Calcium 9.2 (8.4-10.2) mg/dL Magnesium 1.50 L (1.7-2.3) mg/dL Urine Color (Yellow) Urine Turbidity (Clear) Urine pH (5.0-7.0) Ur Specific [place] (1.003-1.030) Urine Protein (Negative) mg/dL Urine Glucose (UA) (Negative) mg/dL Urine Ketones (Negative) mg/dL Urine Blood (Negative) Urine Nitrite (Negative) Urine Bilirubin (Negative) Urine Urobilinogen (<2.0) mg/dL Ur Leukocyte Esterase (Negative) Urine WBC (Auto) (0.0-6.0) /HPF Urine RBC (Auto) (0.0-6.0) /HPF Urine Bacteria (Auto) (Negative) /HPF 11/12/18 Range/Units Unknown WBC (4.5-11.0) K/mm3 RBC (3.65-5.03) M/mm3 Hgb (11.8-15.2) gm/dl Hct (35.5-45.6) % MCV (84-94) fl MCH (28-32) pg MCHC (32-34) % RDW (13.2-15.2) % Plt Count (140-440) K/mm3 Lymph % (Auto) (13.4-35.0) % Weld % (Auto) (0.0-7.3) % Eos % (Auto) (0.0-4.3) % Baso % (Auto) (0.0-1.8) % Lymph # (1.2-5.4) K/mm3 Weld # (0.0-0.8) K/mm3 Eos # (0.0-0.4) K/mm3 Baso # (0.0-0.1) K/mm3 Seg Neutrophils % (40.0-70.0) % Seg Neutrophils # (1.8-7.7) K/mm3 Sodium (137-145) mmol/L Potassium (3.6-5.0) mmol/L Chloride (98-107) mmol/L Carbon Dioxide (22-30) mmol/L Anion Gap mmol/L BUN (9-20) mg/dL Creatinine (0.8-1.5) mg/dL Estimated GFR ml/min BUN/Creatinine Ratio % Glucose (75-100) mg/dL POC Glucose (70-105) Calcium (8.4-10.2) mg/dL Magnesium (1.7-2.3) mg/dL Urine Color Straw (Yellow) Urine Turbidity Clear (Clear) Urine pH 8.0 H (5.0-7.0) Ur Specific [place] 1.003 (1.003-1.030) Urine Protein <15 mg/dl (Negative) mg/dL Urine Glucose (UA) Neg (Negative) mg/dL Urine Ketones Neg (Negative) mg/dL Urine Blood Mod (Negative) Urine Nitrite Neg (Negative) Urine Bilirubin Neg (Negative) Urine Urobilinogen < 2.0 (<2.0) mg/dL Ur Leukocyte Esterase Mod (Negative) Urine WBC (Auto) 17.0 H (0.0-6.0) /HPF Urine RBC (Auto) 11.0 (0.0-6.0) /HPF Urine Bacteria (Auto) 1+ (Negative) /HPF - Medical Decision Making Labs reveal mild hypomagnesemia. 1 g of IV magnesium provided. Patient also empirically treated with 1 g of Keppra and Macrobid for UTI. Patient does have pancytopenia which is likely secondary to history of chronic alcohol abuse. He will be discharged home with antibiotics for UTI. - Differential Diagnosis breakthrough seizure, dementia, electrolyte abnormality, infection Critical Care Time: No Critical care attestation.: If time is entered above; I have spent that time in minutes in the direct care of this critically ill patient, excluding procedure time. ED Disposition Clinical Impression: Dementia, Hypomagnesemia, UTI (urinary tract infection), Seizure disorder, His tory of alcohol abuse, Pancytopenia Disposition: DC-01 TO HOME OR SELFCARE Is pt being admited?: No Does the pt Need Aspirin: No Condition: Stable Instructions: Hypomagnesemia (ED), Urinary Tract Infection in Men (ED), Dementia (ED) Additional Instructions: Take the medication as prescribed. Follow up with your doctor or the clinic/doctor provided. Return if symptoms worsen as indicated by your discharge instructions Prescriptions: Nitrofurantoin Monohyd/M-Cryst [Macrobid 100 mg Capsule] 100 mg PO BID #13 c apsule Referrals: [facility] [Provider Group] - 3-5 Days Time of Disposition: 23:51
[2018-11-12] MEDS ORDERED: MAGNESIUM SULFATE 1 GM in NACL 0.9% 50 ML IV ONE (23:14)
[2018-11-12 23:23] LABS: Bacteria,Urine 1+ /HPF (Negative); Bilirubin,Urine NEG (Negative); Blood,Urine MOD (Negative); Color,Urine Straw (Yellow); Protein,Urine <15 mg/dL mg/dL (Negative); Urobilinogen,Urine < 2.0 mg/dL (<2.0)
[2018-11-12] MEDS ORDERED: MACROBID PO ONE (23:39)
[2018-11-13 02:24] VITALS: BP 172/80
== END 2018-11-13 02:24 | disposition home or self-care (01) ==
LOC: ED 20:55
DX: N39.0 Urinary tract infection, site not specified (principal); F03.90 Unspecified dementia, unspecified severity, without behavioral disturbance, psychotic disturbance, mood disturbance, and anxiety; E83.42 Hypomagnesemia; G40.909 Epilepsy, unspecified, not intractable, without status epilepticus; D61.818 Other pancytopenia; Z85.46 Personal history of malignant neoplasm of prostate
CPT/HCPCS: 36415; 80048; 81001; 82962; 83735; 85025; 96365; 96375; 99284; J1953; J3475